=== PATIENT | male | born 1985 | race Caucasian/White ===

== ENCOUNTER → 2017-01-25 | Outpatient (REF) | payer OTHER ==
[2017-01-25 12:18] LABS: ANION GAP 18 MEQ/L (8-16); BLOOD UREA NITROGEN 12 MG/DL (7-18); CALCIUM LEVEL 9.5 MG/DL (8.5-10.1); CARBON DIOXIDE LEVEL 23 MEQ/L (21-32); CHLORIDE LEVEL 91 MEQ/L (98-107); CREATININE FOR GFR 0.86 MG/DL (0.70-1.30); GLOMERULAR FILTRATION RATE > 60.0 (>60); GLUCOSE, FASTING 361 MG/DL (70-105); SODIUM LEVEL 132 MEQ/L (136-145)
[2017-01-25 12:21] LABS: POTASSIUM SERUM 5.2 MEQ/L (3.5-5.1)
== END ==
LOC: M SFHCCLAY 08:18
PROVIDERS: ATTEND Family Medicine
DX: E11.9 Type 2 diabetes mellitus without complications (principal)

== ENCOUNTER → 2018-10-24 | Outpatient (REF) | payer OTHER, SELFPAY ==
[2018-10-24 12:59] LABS: BLOOD UREA NITROGEN 11 MG/DL (7-18); CALCIUM LEVEL 8.8 MG/DL (8.5-10.1); CARBON DIOXIDE LEVEL 33 MEQ/L (21-32); CHLORIDE LEVEL 94 MEQ/L (98-107); CREATININE FOR GFR 0.72 MG/DL (0.70-1.30); GLOMERULAR FILTRATION RATE > 60.0 (>60); GLUCOSE, FASTING 203 MG/DL (70-100); POTASSIUM SERUM 4.8 MEQ/L (3.5-5.1); SODIUM LEVEL 134 MEQ/L (136-145)
[2018-10-24 13:45] LABS: HEMOGLOBIN A1c 12.1 %
== END ==
LOC: M SFHCCLAY 09:49
PROVIDERS: ATTEND Family Medicine
DX: E11.9 Type 2 diabetes mellitus without complications (principal)

== ENCOUNTER → 2019-04-24 | Outpatient (REF) | payer OTHER, SELFPAY ==
[2019-04-25 12:07] LABS: BLOOD UREA NITROGEN 13 MG/DL (7-18); CALCIUM LEVEL 9.8 MG/DL (8.5-10.1); CARBON DIOXIDE LEVEL 27 MEQ/L (21-32); CHLORIDE LEVEL 100 MEQ/L (98-107); CREATININE FOR GFR 1.05 MG/DL (0.70-1.30); GLOMERULAR FILTRATION RATE > 60.0 (>60); GLUCOSE, FASTING 173 MG/DL (70-100); POTASSIUM SERUM 4.6 MEQ/L (3.5-5.1); SODIUM LEVEL 136 MEQ/L (136-145)
[2019-04-25 14:30] LABS: HEMOGLOBIN A1c 10.3 %
== END ==
LOC: M SFHCCLAY 15:50
PROVIDERS: ATTEND Family Medicine
DX: E11.9 Type 2 diabetes mellitus without complications (principal)

== ENCOUNTER → 2019-10-16 | Outpatient (REF) | payer OTHER ==
[2019-10-17 12:30] LABS: BLOOD UREA NITROGEN 9 MG/DL (7-18); CALCIUM LEVEL 8.8 MG/DL (8.5-10.1); CARBON DIOXIDE LEVEL 30 MEQ/L (21-32); CHLORIDE LEVEL 96 MEQ/L (98-107); CREATININE FOR GFR 0.72 MG/DL (0.70-1.30); GLOMERULAR FILTRATION RATE > 60.0 (>60); GLUCOSE, FASTING 210 MG/DL (70-100); POTASSIUM SERUM 4.5 MEQ/L (3.5-5.1); SODIUM LEVEL 132 MEQ/L (136-145)
[2019-10-17 12:43] LABS: HEMOGLOBIN A1c 12.2 %
== END ==
LOC: M SFHCCLAY 15:44
PROVIDERS: ATTEND Family Medicine
DX: E11.9 Type 2 diabetes mellitus without complications (principal)

== ENCOUNTER 2020-07-28 13:15 | Inpatient (IN) | payer SELFPAY ==
[~2020-07-28] VITALS: Ht 170.2 cm; Wt 72.0 kg
[2020-07-28] MEDS ORDERED: DEXTROSE 50% 50 ML SYRINGE IV PRN (15:45)
[2020-07-28] MEDS ORDERED: MOM 30ML SUSPENSION UDC PO PRN (15:45)
[2020-07-28] MEDS ORDERED: GLUCOSE 4GM CHEW TABLET PO PRN (15:45)
[2020-07-28] MEDS ORDERED: GLUCAGON INJ 1MG VIAL SC PRN (15:45)
[2020-07-28] MEDS ORDERED: MORPHINE 2 MG/ML 1ML VIAL (J2270) IV PRN (15:45)
[2020-07-28 15:47] VITALS: BP 138/82
[2020-07-28 16:18] LABS: BASO # 0.1 10^3/uL (0.0-0.2); BASO % 0.5 % (0.0-1.0); EOS % 0.1 % (0.0-3.0); HEMATOCRIT 39.5 % (42.0-52.0); HEMOGLOBIN 13.8 g/dl (13.5-17.5); LYMPH # 1.3 10^3/uL (1.5-5.0); LYMPH % 12.5 % (24.0-44.0); MEAN CORPUSCULAR HEMOGLOBIN 31.9 pg (27.0-33.0); MEAN CORPUSCULAR HGB CONC 34.9 g/dl (32.0-36.5); MEAN CORPUSCULAR VOLUME 91.4 fl (80.0-96.0); MONO # 1.1 10^3/uL (0.0-0.8); MONO % 10.8 % (0.0-5.0); NEUTROPHILS # 7.6 10^3/uL (1.5-8.5); NEUTROPHILS % 75.8 % (36.0-66.0); PLATELET COUNT, AUTOMATED 195 10^3/uL (150-450); RED BLOOD COUNT 4.32 10^6/uL (4.30-6.10); WHITE BLOOD COUNT 10.1 10^3/uL (4.0-10.0)
[2020-07-28] MEDS ORDERED: LANTINJ4 SC ×2 (16:23→16:28)
[2020-07-28] MEDS ORDERED: AMLO1TAB25 PO (16:23)
[2020-07-28 16:45] LABS: ALBUMIN 2.8 GM/DL (3.2-5.2); ALT/SGPT 11 U/L (12-78); BILIRUBIN,TOTAL 0.6 MG/DL (0.2-1.0); BLOOD UREA NITROGEN 11 MG/DL (7-18); CALCIUM LEVEL 8.8 MG/DL (8.5-10.1); CARBON DIOXIDE LEVEL 29 MEQ/L (21-32); CHLORIDE LEVEL 97 MEQ/L (98-107); CREATININE FOR GFR 0.84 MG/DL (0.70-1.30); GLOMERULAR FILTRATION RATE > 60.0 (>60); GLUCOSE, FASTING 224 MG/DL (70-100); POTASSIUM SERUM 4.9 MEQ/L (3.5-5.1); SODIUM LEVEL 130 MEQ/L (136-145); TOTAL PROTEIN 7.5 GM/DL (6.4-8.2)
[2020-07-28] MEDS ORDERED: **hydrALAZINE HCL** 25 MG TAB PO SCH (18:00)
[2020-07-28] MEDS: HumaLOG INSULIN (NovoLOG) PER UNIT SC SCH ×2 (18:21→20:29)
[2020-07-28] MEDS ORDERED: IBUPROFEN 800 MG TAB PO ONE (18:30)
[2020-07-28] MEDS ORDERED: NICOTINE 21MG/24HR 1 EA TRANSDERMAL TD PRN (18:30)
[2020-07-28] MEDS ORDERED: IBUPROFEN 600MG TAB PO PRN (18:30)
--- NOTE | 2020-07-28 18:33 | HPEPDOC ---
General Date of Admission Jul 28, 2020 at 15:30 Date of Service: Jul 28, 2020 Chief Complaint The patient is a 35-year-old male admitted with a reason for visit of Necrotic Right Great Toe. 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 Patient complains of dull throbbing pain in the toe about 4/10 in intensity radiating up to the dorrsum of the foot. He does have neuropathy in his feet. Home Medications Scheduled Amlodipine Besylate (Amlodipine Besylate) 10 Mg Tablet, 10 MG PO DAILY, (Repor rosalino) Insulin Glargine,Hum.rec.anlog (Lantus Solostar) 100 Unit/1 Ml Insuln.pen, 30 UNITS SC DAILY, (Reported) Scheduled PRN Insulin Glargine,Hum.rec.anlog (Lantus Solostar) 100 Unit/1 Ml Insuln.pen, 18 UNITS SC QPM PRN for HIGH BLOOD SUGAR, (Reported) Allergies Coded Allergies: No Known Drug Allergies (Verified Allergy, Unknown, 07/28/20) Past Medical History Medical History Diabetes with neuropathy and nephropathy Hypertension. ED Surgical History RIGHT FOOT TENDON REPAIR WISDOM TEETH EXTRACTION Family History Significant Family History: Cancer (maternal great aunt), Diabetes (sister), Heart disease (maternal grandfather) Social History * Smoker: current smoker Alcohol: heavy (4 beers a day) Drugs: denies A-FIB/CHADSVASC A-FIB History Current/History of A-Fib/PAF?: No Review of Systems Constitutional: Denies: Chills, Fever, Night Sweats Eyes: Denies: Pain, Vision change ENT: Denies: Head Aches, Ear Pain, Dysphagia Skin: Reports: Lesions, Other (calluses) Pulmonary: Denies: Dyspnea, Cough Cardiovascular: Denies: Chest Pain, Palpitations, Orthopnea, Paroxysmal Noc. Dyspnea, Lt Headedness Gastrointestinal: Denies: Nausea, Vomiting, Abdominal Pain, Diarrhea Genitourinary: Denies: Dysuria, Frequency, Incontinence, Retention Hematologic: Denies: Bruising, Bleeding Excessively Musculoskeletal: Denies: Neck Pain, Back Pain, Joint Pain, Muscle Pain, Spasms Neurological: Reports: Numbness Physical Examination General Exam: Positive: Alert, Cooperative, No Acute Distress Eye Exam: Positive: PERRLA, Conjunctiva & lids normal, EOMI; Negative: Sclera icteric ENT Exam: Positive: Atraumatic, Mucous membr. moist/pink, Pharynx Normal Neck Exam: Positive: Supple; Negative: JVD, thyromegaly Chest Exam: Positive: Clear to auscultation, Normal air movement Heart Exam: Positive: Rate Normal, Regular Rhythm, Normal S1, Normal S2; Negative: Murmurs, Rubs Abdomen Exam: Positive: Normal bowel sounds, Soft; Negative: Tenderness, Hepatospenomegaly Extremity Exam: Positive: Normal pulses, Swelling (right great toe and dorsum of right foot. ), Other (wet gangrene of right great toe with clear line of demarcation); Negative: Clubbing, Cyanosis, Edema Neuro Exam: Positive: Normal Speech, Strength at 5/5 X4 ext, Normal Tone Vital Signs Vital Signs Date Time Temp Pulse Resp B/P (MAP) Pulse Ox O2 Delivery O2 Flow Rate FiO2 07/28/20 15:47 96.8 74 18 138/82 (100) 98 Room Air Laboratory Data Labs 24H Laboratory Tests 2 07/28/20 16:07: Immature Granulocyte % (Auto) 0.3, Neutrophils (%) (Auto) 75.8H, Lymphocytes (%) (Auto) 12.5L, Monocytes (%) (Auto) 10.8H, Eosinophils (%) (Auto) 0.1, Basophils (%) (Auto) 0.5, Neutrophils # (Auto) 7.6, Lymphocytes # (Auto) 1.3L, Monocytes # (Auto) 1.1H, Eosinophils # (Auto) 0.0, Basophils # (Auto) 0.1, Nucleated Red Blood Cells % (auto) 0.0, Anion Gap 4L, Glomerular Filtration Rate > 60.0, Calcium Level 8.8, Total Bilirubin 0.6, Aspartate Amino Transf (AST/SGOT) 10, Alanine Aminotransferase (ALT/SGPT) 11L, Alkaline Phosphatase 95, Total Protein 7.5, Albumin 2.8L, Albumin/Globulin Ratio 0.6 07/28/20 16:25: Bedside Glucose (Misc Panel) 201H CBC/BMP Laboratory Tests 07/28/20 16:07 Assessment/Plan 35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 Right toe diabetic wound with wet gangrene and osteomyelitis wesley reyez. blood cultures sent from [facility] Dr Cardenas consulted. Uncontrolled diabetes with neuropathy and nephropathy will control with levemir and lispro FS AC and HS Hypertension will continue amlodipine and start lisinopril at night. Tobacco use discussed about smoking cessation will make nicotine patch available. Plan / VTE VTE Prophylaxis Ordered?: Yes NANI SPICER MD Jul 28, 2020 18:33
[2020-07-28 20:00] VITALS: BP 140/90
[2020-07-28] MEDS: LEVEMIR (INSULIN DETEMIR) 1 UNITS/0.01ML SC SCH (20:29)
[2020-07-28] MEDS: PIPERACILLIN/TAZOBACTAM SOD 3.375 GM in D5W MINI-BAG PLUS 50 ML IV SCH (20:43)
[2020-07-28] MEDS: LISINOPRIL *2.5 MG* TAB PO SCH (20:44)
[2020-07-28] MEDS: DOCUSATE SODIUM 100 MG CAP PO SCH (20:51)
[2020-07-29] VITALS (8 sets, daily range): BP systolic 122–162; BP diastolic 77–98
[2020-07-29] MEDS: PIPERACILLIN/TAZOBACTAM SOD 3.375 GM in D5W MINI-BAG PLUS 50 ML IV SCH ×4 (01:12→21:34)
[2020-07-29] MEDS: VANCOMYCIN HCL 1,000 MG, VIAL MATE ADAPTER 1 EACH in D5W 250 ML IV SCH ×3 (02:36→18:25)
[2020-07-29 05:11] LABS: BASO # 0.1 10^3/uL (0.0-0.2); BASO % 0.7 % (0.0-1.0); EOS # 0.1 10^3/uL (0.0-0.5); EOS % 1.2 % (0.0-3.0); HEMATOCRIT 38.9 % (42.0-52.0); HEMOGLOBIN 13.2 g/dl (13.5-17.5); LYMPH # 1.5 10^3/uL (1.5-5.0); LYMPH % 19.6 % (24.0-44.0); MEAN CORPUSCULAR HEMOGLOBIN 31.3 pg (27.0-33.0); MEAN CORPUSCULAR HGB CONC 33.9 g/dl (32.0-36.5); MEAN CORPUSCULAR VOLUME 92.2 fl (80.0-96.0); MONO # 0.8 10^3/uL (0.0-0.8); MONO % 10.5 % (0.0-5.0); NEUTROPHILS # 5.1 10^3/uL (1.5-8.5); NEUTROPHILS % 67.7 % (36.0-66.0); PLATELET COUNT, AUTOMATED 188 10^3/uL (150-450); RED BLOOD COUNT 4.22 10^6/uL (4.30-6.10); WHITE BLOOD COUNT 7.5 10^3/uL (4.0-10.0)
[2020-07-29 05:31] LABS: BLOOD UREA NITROGEN 13 MG/DL (7-18); CARBON DIOXIDE LEVEL 28 MEQ/L (21-32); CHLORIDE LEVEL 98 MEQ/L (98-107); CREATININE FOR GFR 0.77 MG/DL (0.70-1.30); GLOMERULAR FILTRATION RATE > 60.0 (>60); GLUCOSE, FASTING 108 MG/DL (70-100); POTASSIUM SERUM 4.3 MEQ/L (3.5-5.1); SODIUM LEVEL 133 MEQ/L (136-145)
[2020-07-29] MEDS: HumaLOG INSULIN (NovoLOG) PER UNIT SC SCH ×4 (07:29→21:33)
[2020-07-29] MEDS: LEVEMIR (INSULIN DETEMIR) 1 UNITS/0.01ML SC SCH (07:34)
[2020-07-29] MEDS: DOCUSATE SODIUM 100 MG CAP PO SCH ×2 (07:48→21:00)
[2020-07-29] MEDS ORDERED: VANCOMYCIN HCL 1,000 MG, VIAL MATE ADAPTER 1 EACH in D5W 250 ML IV ONE ×2 (08:00→08:30)
[2020-07-29] MEDS: amLODIPine 10 MG TAB PO SCH (09:07)
--- NOTE | 2020-07-29 13:34 | IPNPDOC ---
Text Note Date of Service The patient was seen on 07/29/20. NOTE HPI: Mr. Cormier is a 35 yo M with poorly controlled diabetes that was sent from [facility] to [facility] due to wet gangrene of his R great toe. SUBJECTIVE: No acute events overnight. Pt was seen and examined at bedside. He was not complaining of pain this morning and says he's been getting acetaminophen for pain. He was offered morphine but opted for acetaminophen instead. Pt denies shortness of breath, nausea, vomiting, diarrhea, fever, or chills. He was NPO this morning as he is scheduled to go to the OR this afternoon per Dr. Cardenas for debridement of the R great toe. OBJECTIVE: VITAL SIGNS: please see below. GENERAL: Pt is a thin appearing male who was examined lying in bed in no acute distress. HEENT: NC, AT, PERRLA, no scleral icterus, no pharyngeal erythema. CV: RRR, no mumurs, rubs, or gallops. RESP: CTAB, no rales, rhonchi, or wheezes. ABDOMEN: soft, nontender, nondistended, bowel sounds present in all quadrants. EXTREMITIES: no swelling or edema, R great toe bandaged, no visible erythema outside of bandages, +2/4 pedal pulses bilaterally, no lesions on L foot. LABORATORY: please see below. MICROBIOLOGY: please see below. IMAGING: -XRay performed at [facility] showing osteomyelitis of R great toe and distal phalanx. ASSESSMENT/PLAN: Mr. Cormier is a 35 yo male with a PMHx of poorly controlled IDDM and HTN that presented after being transferred from [facility] with right great toe wet gangrene. # Wet gangrene and osteomyelitis R great toe likely 2/2 to poorly controlled DM - Pt is on vancomycin and zosyn. - Xrays from [facility] show extensive osteomyelitis of R great toe and distal phalanx - Dr. Cardenas consulted and to take pt to the OR this afternoon. - Will educate pt on the importance of glycemic control, diabetic foot care/exams, and diabetic eye exams. # Uncontrolled diabetes with neuropathy and nephropathy (?) - BUN 13, Fashion Patternmaker 0.77, Fasting BG 108 - Pt's sliding scale insulin and long acting insulin to be adjusted accordingly. - Ordered an A1c as the last one was 12.2 in 2019. # HTN -Continue amlodipine and lisinopril # Tobacco Use -Counseled about smoking cessation. -Made nicotine patch available. DVT Prophylaxis: Lovenox 40mg (held this AM d/t procedure this afternoon). GI Prophylaxis: not indicated. VS,Fishbone, I+O VS, Fishbone, I+O Laboratory Tests 07/28/20 16:07 07/29/20 04:58 Vital Signs Date Time Temp Pulse Resp B/P (MAP) Pulse Ox O2 Delivery O2 Flow Rate FiO2 07/29/20 12:00 96.8 72 18 147/83 (104) 100 Room Air I&O- Last 24 Hours up to 6 AM 07/29/20 05:59 Intake Total 600 ml Balance 600 ml GME ATTESTATION GME ATTESTATION My faculty preceptor for this patient encounter was physically present during the encounter and was fully available. All aspects of the patient interview, examination, medical decision making process, and medical care plan development were reviewed and approved by the faculty preceptor. The faculty preceptor is aware and concurs with the plan as stated in the body of this note and will attest to such by his/her cosignature. ATTENDING NOTE Patient was seen and examined by me personally with the residents and students. Agree with the above assessment and plan EUSEBIO ANDRE OMS-3 Jul 29, 2020 13:34 ESVIN BUI MD Aug 07, 2020 09:27
--- NOTE | 2020-07-29 14:45 | IPNPDOC ---
Subjective Date Seen The patient was seen on 07/29/20. Assessment /Plan Plan/VTE VTE Prophylaxis Ordered?: Yes VS, I&O, 24H, [facility] Vital Signs/I&O Vital Signs Date Time Temp Pulse Resp B/P (MAP) Pulse Ox O2 Delivery O2 Flow Rate FiO2 07/29/20 04:00 97.8 60 18 138/90 (106) 98 Room Air I&O- Last 24 Hours up to 6 AM 07/29/20 06:59 Intake Total 600 ml Balance 600 ml Laboratory Data 24H LABS Laboratory Tests 2 07/28/20 16:07: Immature Granulocyte % (Auto) 0.3, Neutrophils (%) (Auto) 75.8H, Lymphocytes (%) (Auto) 12.5L, Monocytes (%) (Auto) 10.8H, Eosinophils (%) (Auto) 0.1, Basophils (%) (Auto) 0.5, Neutrophils # (Auto) 7.6, Lymphocytes # (Auto) 1.3L, Monocytes # (Auto) 1.1H, Eosinophils # (Auto) 0.0, Basophils # (Auto) 0.1, Nucleated Red Blood Cells % (auto) 0.0, Anion Gap 4L, Glomerular Filtration Rate > 60.0, Calcium Level 8.8, Total Bilirubin 0.6, Aspartate Amino Transf (AST/SGOT) 10, Alanine Aminotransferase (ALT/SGPT) 11L, Alkaline Phosphatase 95, Total Protein 7.5, Albumin 2.8L, Albumin/Globulin Ratio 0.6 07/28/20 16:25: Bedside Glucose (Misc Panel) 201H 07/28/20 20:23: Bedside Glucose (Misc Panel) 74 07/29/20 04:58: Immature Granulocyte % (Auto) 0.3, Neutrophils (%) (Auto) 67.7H, Lymphocytes (%) (Auto) 19.6L, Monocytes (%) (Auto) 10.5H, Eosinophils (%) (Auto) 1.2, Basophils (%) (Auto) 0.7, Neutrophils # (Auto) 5.1, Lymphocytes # (Auto) 1.5, Monocytes # (Auto) 0.8, Eosinophils # (Auto) 0.1, Basophils # (Auto) 0.1, Nucleated Red Blood Cells % (auto) 0.0, Anion Gap 7L, Glomerular Filtration Rate > 60.0, Calcium Level 8.0L, C-Reactive Protein, Quantitative 6.30H CBC/BMP Laboratory Tests 07/28/20 16:07 07/29/20 04:58 NANI SPICER MD Jul 29, 2020 07:58
[2020-07-29] MEDS ORDERED: BUPIVACAINE HCL 0.5% 10ML VIAL As Ordered ONE (15:59)
[2020-07-29] MEDS ORDERED: LIDOCAINE 1% MDV 20ML VIAL As Ordered ONE (15:59)
[2020-07-29] MEDS ORDERED: MIDAZOLAM INJ 2MG/2ML VIAL (J2250 PER 1MG) As Ordered ONE (16:24)
[2020-07-29] MEDS ORDERED: propofoL 200 MG/20 ML VIAL As Ordered ONE ×2 (16:24→17:06)
[2020-07-29] MEDS ORDERED: fentaNYL 100 MCG/2 ML INJECTION (J3010) As Ordered ONE (16:24)
[2020-07-29] MEDS ORDERED: LIDOCAINE 2% 100MG/5ML SDV (FOR ANES.) As Ordered ONE (16:24)
[2020-07-29] MEDS ORDERED: ONDANSETRON 4MG/2ML VIAL As Ordered ONE (16:25)
[2020-07-29] MEDS ORDERED: dexameTHASONE 4 MG/ML 1ML VIAL (J1100 PER 1MG) As Ordered ONE (16:25)
[2020-07-29] MEDS ORDERED: SLF 3 ML SYR IV PRN (16:30)
[2020-07-29] MEDS ORDERED: oxyCODONE 5MG TAB PO PRN (18:15)
[2020-07-29] MEDS ORDERED: NORCO, ANEXSIA 5/325MG TABLET (HYDROcodone/ACETAMINOPHEN) PO PRN (18:15)
[2020-07-29] MEDS ORDERED: ONDANSETRON 4MG/2ML VIAL IV PRN (18:15)
[2020-07-29] MEDS ORDERED: LOPERAMIDE 2 MG CAPLET PO ONE (21:30)
[2020-07-29] MEDS: LISINOPRIL *2.5 MG* TAB PO SCH (21:32)
[2020-07-29] MEDS: SLF 3 ML SYR IV SCH (21:33)
[2020-07-30] VITALS: BP 124/74
[2020-07-30] MEDS: PIPERACILLIN/TAZOBACTAM SOD 3.375 GM in D5W MINI-BAG PLUS 50 ML IV SCH ×4 (01:57→18:31)
[2020-07-30] MEDS: VANCOMYCIN HCL 1,000 MG, VIAL MATE ADAPTER 1 EACH in D5W 250 ML IV SCH ×3 (02:53→22:01)
[2020-07-30] MEDS: SLF 3 ML SYR IV SCH ×3 (03:58→22:02)
[2020-07-30 04:00] VITALS: BP 159/86
[2020-07-30 05:25] LABS: BASO % 0.4 % (0.0-1.0); EOS % 0.1 % (0.0-3.0); HEMATOCRIT 36.4 % (42.0-52.0); HEMOGLOBIN 12.5 g/dl (13.5-17.5); LYMPH % 10.8 % (24.0-44.0); MEAN CORPUSCULAR HGB CONC 34.3 g/dl (32.0-36.5); MEAN CORPUSCULAR VOLUME 93.1 fl (80.0-96.0); MONO # 0.9 10^3/uL (0.0-0.8); MONO % 9.2 % (0.0-5.0); NEUTROPHILS # 7.6 10^3/uL (1.5-8.5); NEUTROPHILS % 78.8 % (36.0-66.0); PLATELET COUNT, AUTOMATED 203 10^3/uL (150-450); RED BLOOD COUNT 3.91 10^6/uL (4.30-6.10); WHITE BLOOD COUNT 9.7 10^3/uL (4.0-10.0)
[2020-07-30 05:51] LABS: BLOOD UREA NITROGEN 12 MG/DL (7-18); CALCIUM LEVEL 8.2 MG/DL (8.5-10.1); CARBON DIOXIDE LEVEL 27 MEQ/L (21-32); CHLORIDE LEVEL 98 MEQ/L (98-107); CREATININE FOR GFR 0.88 MG/DL (0.70-1.30); GLOMERULAR FILTRATION RATE > 60.0 (>60); GLUCOSE, FASTING 340 MG/DL (70-100); POTASSIUM SERUM 5.1 MEQ/L (3.5-5.1); SODIUM LEVEL 131 MEQ/L (136-145)
[2020-07-30] MEDS: DOCUSATE SODIUM 100 MG CAP PO SCH ×2 (07:55→21:00)
[2020-07-30 08:00] VITALS: BP 166/92
[2020-07-30] MEDS: MUPIROCIN 2% OINT 22 GM TUBE TOP SCH (08:05)
[2020-07-30] MEDS: HumaLOG INSULIN (NovoLOG) PER UNIT SC SCH ×5 (08:05→21:00)
[2020-07-30] MEDS: ENOXAPARIN 40MG/0.4ML SYRINGE (J1650 PER 10MG) SC SCH (08:06)
[2020-07-30] MEDS: amLODIPine 10 MG TAB PO SCH (08:07)
--- NOTE | 2020-07-30 08:50 | IPNPDOC ---
Text Note Date of Service The patient was seen on 07/30/20. NOTE HPI: Mr. Cormier is a 35 yo M with poorly controlled diabetes that was sent from [facility] to [facility] due to wet gangrene of his R great toe. SUBJECTIVE: Yesterday the pt had a R hallux amputation. Overnight he had 3-4 episodes of nonbloody diarrhea that resolved with administration of Loperamide. This morning he complains of pain in the R foot but was due to receive another dose of pain medication which he says has been managing the pain appropriately. He denies fever, chills, nausea, vomiting, or further episodes of diarrhea. Dr. Cardenas was in to talk to the pt this morning and the pt reported that he was counseled on better diabetes management. I also spoke with the pt about his understanding of how his foot got to this point, his understanding of his diabe nancy, and his tobacco use. The patient does not show any willingness to cut down or quit smoking at this time. OBJECTIVE: VITAL SIGNS: please see below. GENERAL: Pt is a thin appearing male that appears older than stated age, lying comfortably in bed, makes minimal eye contact, in NAD. HEENT: NC, AT, no scleral icterus, no pharyngeal erythema. CV: RRR, no murmurs, rubs, or gallops. RESP: CTAB, no rales, rhonchi, or wheezes. ABDOMEN: soft, nontender, nondistended, bowel sounds present in all quadrants. EXTREMITIES: Right foot bandaged, bandage is clean and dry, Left forefoot is wrapped, wrapping is clean and dry. No swelling or edema, +2/4 pedal pulses BL. LABORATORY: please see below. MICROBIOLOGY: -Cultures of amputated R hallux sent yesterday and are pending. IMAGING: -XRay performed at [facility] showing osteomyelitis of R great toe and entire distal phalanx. ASSESSMENT/PLAN: Mr. Cormier is a 35 yo M with a PMHx of poorly controlled IDDM and HTN that presented after being transferred from [facility] with R great toe wet gangrene and osteomyelitis. # Wet gangrene and osteomyelitis of R hallux and distal phalanx s/p R hallux amputation -Pt under the care of Dr. Cardenas, appreciate his recommendations. -Pt continuing to receive vancomycin and zosyn. Will be able to target antibiotics once cultures return and if the entire osteomyelitis was removed. -Educated pt on the importance of glycemic control, diabetic foot care/exams, and smoking cessation. -Pain control and post op care as per Dr. Cardenas. # Uncontrolled diabetes with neuropathy and nephropathy (?) -BUN 12, Toppiece Cutter 0.88, Fasting BG 340. -Pt's sliding scale insulin and long acting insulin to be adjusted accordingly. -Pt did not receive his usual dose of insulin yesterday as he was NPO. -A1c 11 # HTN -Continue amlodipine and lisinopril. # Tobacco use -Counseled about smoking cessation. Pt unreceptive to cessation plans. -Made nicotine patch available. DVT Prophylaxis: Lovenox 40mg GI Prophylaxis: not indicated. VS,Fishbone, I+O VS, Fishbone, I+O Laboratory Tests 07/30/20 05:00 Vital Signs Date Time Temp Pulse Resp B/P (MAP) Pulse Ox O2 Delivery O2 Flow Rate FiO2 07/30/20 08:07 82 166/96 07/30/20 08:00 96.3 18 100 Room Air I&O- Last 24 Hours up to 6 AM 07/30/20 06:00 Intake Total 4910 ml Output Total 0 ml Balance 4910 ml GME ATTESTATION GME ATTESTATION My faculty preceptor for this patient encounter was physically present during the encounter and was fully available. All aspects of the patient interview, examination, medical decision making process, and medical care plan development were reviewed and approved by the faculty preceptor. The faculty preceptor is aware and concurs with the plan as stated in the body of this note and will attest to such by his/her cosignature. ATTENDING NOTE Patient was seen and examined by me personally with the residents and students. Agree with the above assessment and plan EUSEBIO ANDRE OMS-3 Jul 30, 2020 08:50 ESVIN BUI MD Aug 07, 2020 09:29
[2020-07-30 12:00] VITALS: BP 159/93
[2020-07-30] MEDS: LEVEMIR (INSULIN DETEMIR) 1 UNITS/0.01ML SC SCH ×2 (13:36→21:00)
--- NOTE | 2020-07-30 15:38 | CR ---
DATE OF CONSULTATION: 07/28/2020 REASON FOR CONSULTATION: Right hallux gangrene. HISTORY OF PRESENT ILLNESS: The patient is a 35-year-old male who was admitted to the hospital as transfer from [facility] Emergency Department due to necrotic right big toe. He states he noticed a wound starting just less than a week ago after a callus fell off of his big toe. Over the next few days the toe became red and then became black and he had increasing pain. He went to the ER at [facility] and then sent to [facility] for admission. PAST MEDICAL HISTORY: Significant for diabetes with neuropathy and nephropathy, hypertension, ED. SURGICAL HISTORY: Includes right foot tendon repair and wisdom teeth extraction. FAMILY HISTORY: Includes cancer, diabetes and heart disease. SOCIAL HISTORY: Positive for alcohol and tobacco use. ALLERGIES: NO KNOWN DRUG ALLERGIES. REVIEW OF SYSTEMS: He denies nausea, vomiting, fever, chills. Vitals are reviewed. He has been afebrile since admission. LABORATORY DATA: Reviewed. White blood cell count 10.1, hemoglobin 13.8. PHYSICAL EXAMINATION: Lower extremity examination: Pedal pulses are palpable bilaterally. There is callus with some dry blood under the left hallux. The right hallux the toe has eschar extending to just proximal to the interphalangeal joint and there is edema and erythema to the right foot. There is no capillary refill to the distal toe with positive malodor. ASSESSMENT: 35-year-old diabetic male with right hallux gangrene and left hallux wound. PLAN: * The patient is to be brought to the operating room tomorrow for hallux amputation as well as left hallux wound debridement. * He is to be NPO after early breakfast. * Presently he is on Vancomycin and Zosyn. Will take operative wound cultures. YANET
[2020-07-30 16:00] VITALS: BP 142/82
[2020-07-30 20:00] VITALS: BP 141/88
[2020-07-30] MEDS: LISINOPRIL *2.5 MG* TAB PO SCH (22:01)
[2020-07-31] VITALS: BP 152/92
[2020-07-31] MEDS: PIPERACILLIN/TAZOBACTAM SOD 3.375 GM in D5W MINI-BAG PLUS 50 ML IV SCH ×3 (00:44→12:23)
[2020-07-31 04:00] VITALS: BP 135/88
[2020-07-31] MEDS: VANCOMYCIN HCL 1,000 MG, VIAL MATE ADAPTER 1 EACH in D5W 250 ML IV SCH ×2 (05:13→12:16)
[2020-07-31] MEDS: SLF 3 ML SYR IV SCH ×2 (05:13→13:13)
[2020-07-31 05:25] LABS: BASO # 0.1 10^3/uL (0.0-0.2); BASO % 0.6 % (0.0-1.0); EOS # 0.1 10^3/uL (0.0-0.5); EOS % 0.6 % (0.0-3.0); HEMOGLOBIN 12.1 g/dl (13.5-17.5); LYMPH # 1.4 10^3/uL (1.5-5.0); LYMPH % 13.6 % (24.0-44.0); MEAN CORPUSCULAR HEMOGLOBIN 32.1 pg (27.0-33.0); MEAN CORPUSCULAR HGB CONC 34.6 g/dl (32.0-36.5); MEAN CORPUSCULAR VOLUME 92.8 fl (80.0-96.0); MONO % 10.1 % (0.0-5.0); NEUTROPHILS # 7.6 10^3/uL (1.5-8.5); NEUTROPHILS % 74.6 % (36.0-66.0); PLATELET COUNT, AUTOMATED 216 10^3/uL (150-450); RED BLOOD COUNT 3.77 10^6/uL (4.30-6.10); WHITE BLOOD COUNT 10.2 10^3/uL (4.0-10.0)
[2020-07-31 05:42] LABS: BLOOD UREA NITROGEN 6 MG/DL (7-18); CALCIUM LEVEL 8.1 MG/DL (8.5-10.1); CARBON DIOXIDE LEVEL 30 MEQ/L (21-32); CHLORIDE LEVEL 100 MEQ/L (98-107); CREATININE FOR GFR 0.74 MG/DL (0.70-1.30); GLOMERULAR FILTRATION RATE > 60.0 (>60); GLUCOSE, FASTING 169 MG/DL (70-100); POTASSIUM SERUM 4.7 MEQ/L (3.5-5.1); SODIUM LEVEL 134 MEQ/L (136-145)
[2020-07-31] MEDS: HumaLOG INSULIN (NovoLOG) PER UNIT SC SCH ×4 (07:35→12:16)
[2020-07-31 08:00] VITALS: BP 138/82
[2020-07-31] MEDS: DOCUSATE SODIUM 100 MG CAP PO SCH (08:10)
[2020-07-31 09:07] VITALS: BP 140/82
[2020-07-31] MEDS: amLODIPine 10 MG TAB PO SCH (09:07)
[2020-07-31] MEDS: LEVEMIR (INSULIN DETEMIR) 1 UNITS/0.01ML SC SCH (09:07)
[2020-07-31] MEDS: ENOXAPARIN 40MG/0.4ML SYRINGE (J1650 PER 10MG) SC SCH (09:07)
[2020-07-31] MEDS: MUPIROCIN 2% OINT 22 GM TUBE TOP SCH (09:08)
[2020-07-31 12:00] VITALS: BP 113/70
[2020-07-31] MEDS ORDERED: MUPI2OI TOP (13:01)
[2020-07-31] MEDS ORDERED: PROBCAP14 PO (13:01)
[2020-07-31] MEDS ORDERED: LEVO750T13 PO (13:01)
--- NOTE | 2020-07-31 13:33 | DS.PDOC ---
Discharge Summary General Date of Admission Jul 28, 2020 at 15:30 Date of Discharge Jul 31, 2020 Primary Care Physician: Robby Marcelo Attending Physician: ESVIN BUI MD Specialist/Consultants Involve: LUAN DENNIS DPM Discharge Summary PROCEDURES PERFORMED DURING STAY: R hallux amputation and L hallux debridement. ADMITTING DIAGNOSES/DISCHARGE DIAGNOSES: 1. IDDM 2. HTN 3. Wet gangrene and osteomyelitis of R hallux 4. ED COMPLICATIONS/CHIEF COMPLAINT: Necrotic Right Great Toe. HISTORY OF PRESENT ILLNESS: Mr. Cormier is a 35 yo male with a PMHx of poorly controlled IDDM and HTN that presented to [place] ED on 07/28/2020 complaining of R great toe pain that had progressed to the toe turning black and having a foul odor. He states that it started as a callus that fell of 9 days prior, started to get red and swollen, and then became black which prompted him to visit [place] ED. Imaging obtained at [place] ED showed osteomyelitis of the R hallux and distal phalanx. He was sent to [facility] ED for a higher level of care. HOSPITAL COURSE/DISCHARGE PLAN: Upon admission on 07/28/2020 the pt was started on IV zosyn and vancomycin to cover osteomyelitis and gangrene. On 07/29/2020 the pt was seen and evaluated by Dr. Dennis and was taken to the OR later that day for R toe debridement. The procedure ended up being a R hallux amputation and a L hallux debridement. He had a callus on his L hallux that was debrided at the time of R hallux amputation. He has had diarrhea since the evening of 07/29 until the morning of 07/31 likely due to the strong IV antibiotics that he was on. The pt was educated several times by the hospitalist team, Dr. Dennis, and nursing about the importance of blood glucose control, diabetic foot care, diabetic eye exams, alcohol consumption, and smoking cessation. The pt was not agreeable to a ny sort of smoking cessation or alcohol abstinence at this time. PT worked with the pt and cleared him for discharge. Pathology says that the toe was removed with clean margins so the pt is being discharged today (07/31/2020) on oral levaquin. He is instructed to follow up with his PCP as well as Dr. Dennis within 7 days of discharge and to return to the hospital if symptoms return. DISCHARGE MEDICATIONS: Please see below. ALLERGIES: Please see below. PHYSICAL EXAMINATION ON DISCHARGE: VITAL SIGNS: Please see below. GENERAL: Pt is a thin appearing male, seen lying comfortably in bed in no acute distress. HEENT: NC, AT, no scleral icterus, no pharyngeal erythema. NECK: no JVD or lymphadenopathy appreciated. CARDIOVASCULAR EXAMINATION: RRR, no murmurs, rubs, or gallops, normal S1 and S2. RESPIRATORY EXAMINATION: CTAB, no rales, rhonchi, or wheezes. ABDOMINAL EXAMINATION: soft, nontender, nondistended, bowel sounds present in all quadrants. EXTREMITIES: R foot bandage is clean and dry, no visible erythema on R foot, L forefoot bandage is clean and dry, no visible swelling or erythema, pedal pulses +2/4 BL. SKIN: No new rashes or lesions. NEUROLOGICAL EXAMINATION: CN II-XII grossly intact, EOMI, PERRLA. PSYCHIATRIC EXAMINATION: Normal mood and affect, poor eye contact. LABORATORY DATA: Please see below. IMAGING: -R foot Xray from [facility] on 07/28/2020: Wet gangrene and osteomyelitis of R great toe involving the entire distal phalanx. PROGNOSIS: Fair. ACTIVITY: NWB R LE with surgical shoe. Weight bearing as tolerated L LE with crutches. DIET: Diabetic diet. DISPOSITION: Discharge home. DISCHARGE INSTRUCTIONS/ITEMS TO FOLLOWUP ON OUTPATIENT: 1. Follow up with PCP within 7 days. Followup on pending anaerobic cultures from the amputated toe. 2. Follow up with Dr. Dennis in 7 days. Out of work indefinitely until podiatry follow up and clearance. 3. Take Levaquin for 7 days as prescribed. 4. Follow wound care instructions: Left big toe- antibiotic ointment and ban daid, change daily. Right amputation site- tends, 4x4 gauze, cling, DENISA wrap, change every other day. 5. Take lactobacillus probiotic as prescribed. DISCHARGE CONDITION: Stable. TIME SPENT ON DISCHARGE: Greater than 35 minutes. Vital Signs/I&Os Vital Signs Date Time Temp Pulse Resp B/P (MAP) Pulse Ox O2 Delivery O2 Flow Rate FiO2 07/31/20 09:07 74 140/82 07/31/20 08:00 97.3 17 100 Room Air I&O- Last 24 Hours up to 6 AM 07/31/20 06:00 Intake Total 2170 ml Output Total 1025 ml Balance 1145 ml Laboratory Data Labs 24H Laboratory Tests 2 07/30/20 11:33: Bedside Glucose (Misc Panel) 275H 07/30/20 13:32: Bedside Glucose (Misc Panel) 255H 07/30/20 16:20: Bedside Glucose (Misc Panel) 216H 07/30/20 21:32: Bedside Glucose (Misc Panel) 67L 07/31/20 05:08: Immature Granulocyte % (Auto) 0.5, Neutrophils (%) (Auto) 74.6H, Lymphocytes (%) (Auto) 13.6L, Monocytes (%) (Auto) 10.1H, Eosinophils (%) (Auto) 0.6, Basophils (%) (Auto) 0.6, Neutrophils # (Auto) 7.6, Lymphocytes # (Auto) 1.4L, Monocytes # (Auto) 1.0H, Eosinophils # (Auto) 0.1, Basophils # (Auto) 0.1, Nucleated Red Blood Cells % (auto) 0.0, Anion Gap 4L, Glomerular Filtration Rate > 60.0, Calcium Level 8.1L CBC/BMP Laboratory Tests 07/31/20 05:08 FSBS Laboratory Tests Test 07/30/20 11:33 07/30/20 13:32 07/30/20 16:20 07/30/20 21:32 Range/Units Bedside Glucose (Misc Panel) 275 255 216 67 70-105 MG/DL Microbiology Microbiology 07/29/20 Gram Stain - Final, Resulted 07/29/20 Wound Culture - Preliminary, Resulted Morganella Morganii Sp Sibonii 07/29/20 Anaerobic Culture, Resulted Pending Discharge Medications Scheduled Amlodipine Besylate (Amlodipine Besylate) 10 Mg Tablet, 10 MG PO DAILY, (Reported) Insulin Glargine,Hum.rec.anlog (Lantus Solostar) 100 Unit/1 Ml Insuln.pen, 30 UNITS SC DAILY, (Reported) Lactobacillus Acidophilus (Probiotic) 1 Each Capsule, 1 CAP PO TID Levofloxacin (Levofloxacin) 750 Mg Tablet, 750 MG PO DAILY Mupirocin (Mupirocin) 2 % Oint...g., 0 DOSE TOP DAILY Scheduled PRN Insulin Glargine,Hum.rec.anlog (Lantus Solostar) 100 Unit/1 Ml Insuln.pen, 18 UNITS SC QPM PRN for HIGH BLOOD SUGAR, (Reported) Allergies Coded Allergies: No Known Drug Allergies (Verified Allergy, Unknown, 07/28/20) GME ATTESTATION GME ATTESTATION My faculty preceptor for this patient encounter was physically present during the encounter and was fully available. All aspects of the patient interview, examination, medical decision making process, and medical care plan development were reviewed and approved by the faculty preceptor. The faculty preceptor is aware and concurs with the plan as stated in the body of this note and will attest to such by his/her cosignature. ATTENDING NOTE Patient was seen and examined by me personally with the residents and students. Agree with the above assessment and plan EUSEBIO ANDRE OMS-3 Jul 31, 2020 11:42 ESVIN BUI MD Aug 07, 2020 09:32
--- NOTE | 2020-08-01 07:01 | IPN ---
DATE: 07/30/2020 SUBJECTIVE: Patient seen and examined. There was some bleeding overnight. He states that nursing reapplied dressings and that bleeding eventually stopped. He has some pain in his foot. He has not taken a pain pill yet this morning. He denies other complaints. PHYSICAL EXAMINATION: Vitals are reviewed, he has remained afebrile. LOWER EXTREMITY EXAMINATION: There is some remaining erythema and edema to the right foot, some dried blood. No active bleeding is noted at the incision and the wound is still coapted without dehiscence. LABORATORY DATA: Labs are reviewed. White blood cell count 9.7, hemoglobin 12.5. ASSESSMENT: This 35-year-old male with diabetes; status post right hallux amputation. PLAN: Continue I.V. antibiotics. Await culture results. He is to be off his right foot. Therapy has been ordered. Wound care order is written. Once cultures are available, he can be discharged on oral antibiotics likely for two week duration. He should follow-up in my office next week. YANET
--- NOTE | 2020-08-01 07:05 | RO ---
DATE OF SURGERY: 07/29/2020 SURGEON: Kwabena Cardenas DPM DIE DESIGNER APPRENTICE: None. PREOPERATIVE DIAGNOSES: 1. Right hallux gangrene. 2. Left hallux ulcer. POSTOPERATIVE DIAGNOSIS: 1. Right hallux gangrene. 2. Left hallux ulcer. PROCEDURE: 1. Right hallux amputation. 2. Left hallux excisional wound debridement including subcutaneous tissue. ANESTHESIA: Monitored anesthesia care. PREOPERATIVE INJECTION: 20 cc of a one-to-one mixture of 1% lidocaine plain and 0.5% Marcaine plain. ESTIMATED BLOOD LOSS: Minimal. MATERIALS: 3-0 nylon. INJECTABLES: None. SPECIMENS: Right hallux, as well as right hallux aerobic and anaerobic cultures. COMPLICATIONS: None. CONDITION: Stable. INDICATIONS: Quincy Cormier is a 35-year-old male who is admitted to the hospital with right hallux gangrene. He was started on IV antibiotics with plan for amputation. The patient's side and site were identified and marked in the pre-operative holding area. Consent was reviewed and obtained. All risks, complications, and alternatives to the procedure were explained to the patient in detail and all questions were answered. DESCRIPTION OF PROCEDURE: The patient was brought to the operating room and placed on the operating room table in the supine position. Monitored anesthesia care was delivered by the anesthesia team. Preoperative injection of 20 mL of a one-to-one mixture of 1% lidocaine plain and 0.5% Marcaine plain were injected in the right foot and left hallux. A tourniquet was applied to the right ankle. Both feet were prepped and draped in normal sterile fashion. The tourniquet on the ankle was inflated to 250 mmHg. Attention was first paid to the left hallux. Using a #10-blade, the wound was debrided of nonviable tissue and callous in excisional fashion, including subcutaneous tissue. This wound was dressed with sterile gauze dressing. Attention was then paid to the right hallux. Significant gangrene was noted to the right hallux extending to the metatarsophalangeal joint. The toe was disarticulated at this joint. Aerobic and anaerobic cultures were taken. The toe was sent for pathology. The wound was debrided free until no further necrotic tissue or nonviable tissue was noted. The site was irrigated with normal saline and the wound was closed using 3-0 nylon. The tourniquet was deflated. Sterile dressings were applied. The patient was brought to the PACU with vital signs stable and neurovascular status intact. He will be readmitted to the floor. Continue antibiotics. Await culture results. We will follow. YANET
== END 2020-07-31 16:06 | disposition home or self-care (01) | DRG 314 ==
LOC: M PCU 15:30
PROVIDERS: ADMIT Internal Medicine; ATTEND Internal Medicine
PROC: 0JBR0ZZ Excision of Left Foot Subcutaneous Tissue and Fascia, Open Approach (ICD-10-PCS; principal; 2020-07-29 07:58)
PROC: 0Y6P0Z0 Detachment at Right 1st Toe, Complete, Open Approach (ICD-10-PCS; 2020-07-29 07:58)
DX: E11.52 Type 2 diabetes mellitus with diabetic peripheral angiopathy with gangrene (principal); M86.171 Other acute osteomyelitis, right ankle and foot; I96 Gangrene, not elsewhere classified; E11.21 Type 2 diabetes mellitus with diabetic nephropathy; E11.40 Type 2 diabetes mellitus with diabetic neuropathy, unspecified; E11.621 Type 2 diabetes mellitus with foot ulcer; L97.519 Non-pressure chronic ulcer of other part of right foot with unspecified severity; I10 Essential (primary) hypertension; F17.200 Nicotine dependence, unspecified, uncomplicated; Z79.899 Other long term (current) drug therapy; Z79.4 Long term (current) use of insulin

== ENCOUNTER → 2020-10-18 | Outpatient (REF) | payer MEDICAID, OTHER ==
[~2020-10-18] MED LIST: AMLO1TAB25 PO; LANTINJ4 SC; LEVO750T13 PO; MUPI2OI TOP; PROBCAP14 PO
[2020-10-18 16:26] LABS: BLOOD UREA NITROGEN 15 MG/DL (7-18); CALCIUM LEVEL 9.9 MG/DL (8.5-10.1); CARBON DIOXIDE LEVEL 32 MEQ/L (21-32); CHLORIDE LEVEL 96 MEQ/L (98-107); CREATININE FOR GFR 1.03 MG/DL (0.70-1.30); GLOMERULAR FILTRATION RATE > 60.0 (>60); GLUCOSE, FASTING 288 MG/DL (70-100); POTASSIUM SERUM 4.2 MEQ/L (3.5-5.1); SODIUM LEVEL 132 MEQ/L (136-145)
[2020-10-18 16:47] LABS: HEMOGLOBIN A1c 11.1 %
== END ==
LOC: M SFHCCLAY 10:18
PROVIDERS: ATTEND Family Medicine
DX: E11.9 Type 2 diabetes mellitus without complications (principal)

== ENCOUNTER → 2021-01-24 | Outpatient (REF) | payer MEDICAID, OTHER | LOC: M SFHCCLAY 11:14 | PROVIDERS: ATTEND Family Medicine | DX: R19.7 Diarrhea, unspecified (principal) ==

== ENCOUNTER → 2021-02-04 | Outpatient (REF) | payer OTHER ==
[2021-02-04 12:29] LABS: BASO # 0.1 10^3/uL (0.0-0.2); BASO % 1.4 % (0.0-1.0); EOS # 0.4 10^3/uL (0.0-0.5); EOS % 6.1 % (0.0-3.0); HEMATOCRIT 42.3 % (42.0-52.0); HEMOGLOBIN 14.7 g/dl (13.5-17.5); LYMPH # 1.5 10^3/uL (1.5-5.0); LYMPH % 23.1 % (24.0-44.0); MEAN CORPUSCULAR HEMOGLOBIN 32.3 pg (27.0-33.0); MEAN CORPUSCULAR HGB CONC 34.8 g/dl (32.0-36.5); MONO # 0.7 10^3/uL (0.0-0.8); NEUTROPHILS # 3.7 10^3/uL (1.5-8.5); NEUTROPHILS % 58.2 % (36.0-66.0); PLATELET COUNT, AUTOMATED 192 10^3/uL (150-450); RED BLOOD COUNT 4.55 10^6/uL (4.30-6.10); WHITE BLOOD COUNT 6.4 10^3/uL (4.0-10.0)
[2021-02-04 12:50] LABS: ALBUMIN 3.6 GM/DL (3.2-5.2); BILIRUBIN,DIRECT 0.2 MG/DL (0.0-0.2); BILIRUBIN,TOTAL 0.3 MG/DL (0.2-1.0); TOTAL PROTEIN 7.4 GM/DL (6.4-8.2)
[2021-02-04 12:57] LABS: FOLATE 7.3 NG/ML
[2021-02-06 07:10] LABS: IGASUB2 410.5 mg/dL (73.2-301.2); IGASUB3 >132.4 mg/dL (13.4-97.9); IgA SERUM (part of Subclasses) 530 mg/dL (90-386); TISSUE TRANSGLUTAMINASE IgA <2 U/mL (0-3)
== END ==
LOC: M LABDRAWC 11:00
PROVIDERS: ATTEND Internal Medicine Gastroenterology
DX: R19.7 Diarrhea, unspecified (principal); R10.32 Left lower quadrant pain

== ENCOUNTER → 2021-04-10 | Outpatient (REF) | payer OTHER ==
[2021-04-11 13:03] LABS: ALBUMIN 4.1 GM/DL (3.2-5.2); ALT/SGPT 27 U/L (12-78); BILIRUBIN,TOTAL 0.6 MG/DL (0.2-1.0); BLOOD UREA NITROGEN 25 MG/DL (7-18); CALCIUM LEVEL 9.7 MG/DL (8.5-10.1); CARBON DIOXIDE LEVEL 28 MEQ/L (21-32); CHLORIDE LEVEL 97 MEQ/L (98-107); CREATININE FOR GFR 1.18 MG/DL (0.70-1.30); GLOMERULAR FILTRATION RATE > 60.0 (>60); GLUCOSE, FASTING 346 MG/DL (70-100); POTASSIUM SERUM 4.7 MEQ/L (3.5-5.1); SODIUM LEVEL 132 MEQ/L (136-145); TOTAL PROTEIN 8.2 GM/DL (6.4-8.2)
== END ==
LOC: M SFHCCLAY 16:21
PROVIDERS: ATTEND Family Medicine
DX: E11.9 Type 2 diabetes mellitus without complications (principal)

== ENCOUNTER → 2021-05-15 | Outpatient (CLI) | payer OTHER | LOC: M LABSMTC 14:02 | PROVIDERS: ATTEND Anesthesiology | DX: Z01.812 Encounter for preprocedural laboratory examination (principal); Z20.828 Contact with and (suspected) exposure to other viral communicable diseases ==

== ENCOUNTER 2021-05-19 13:13 | Day surgery (SDC) | payer OTHER ==
[~2021-05-19] VITALS: Ht 170.2 cm; Wt 66.7 kg
[~2021-05-19 13:13] MED LIST changes: +NS 1,000 ML IV ONE
[2021-05-19] MEDS ORDERED: LIDOCAINE 2% 100MG/5ML SDV (FOR ANES.) As Ordered ONE ×2 (14:35→15:04)
[2021-05-19] MEDS ORDERED: propofoL 200 MG/20 ML VIAL As Ordered ONE ×2 (14:35→15:04)
[2021-05-19 16:04] VITALS: BP 124/72
--- NOTE | 2021-05-19 16:11 | ROOR ---
Patient Name: Quincy Cormier Procedure Date: 05/19/2021 2:01 PM Date of : 1985 Age: 36 Gender: Male Note Status: Finalized Procedure: Colonoscopy Indications: Chronic diarrhea, Change in bowel habits Providers: Joseph Garcia MD Referring MD: RANJITH DUMONT DO Requesting Provider: Medicines: Monitored Anesthesia Care Complications: No immediate complications. Procedure: Pre-Anesthesia Assessment: - Prior to the procedure, a History and Physical was performed, and patient medications and allergies were reviewed. The patient is competent. The risks and benefits of the procedure and the sedation options and risks were discussed with the patient. All questions were answered and informed consent was obtained. Patient identification and proposed procedure were verified by the physician, the nurse and the anesthesiologist in the procedure room. Mental Status Examination: alert and oriented. Airway Examination: normal oropharyngeal airway and neck mobility. Respiratory Examination: clear to auscultation. CV Examination: normal. Prophylactic Antibiotics: The patient does not require prophylactic antibiotics. Prior Anticoagulants: The patient has taken no previous anticoagulant or antiplatelet agents. ASA Grade Assessment: II - A patient with mild systemic disease. After reviewing the risks and benefits, the patient was deemed in satisfactory condition to undergo the procedure. The anesthesia plan was to use monitored anesthesia care (MAC). Immediately prior to administration of medications, the patient was re-assessed for adequacy to receive sedatives. The heart rate, respiratory rate, oxygen saturations, blood pressure, adequacy of pulmonary ventilation, and response to care were monitored throughout the procedure. The physical status of the patient was re-assessed after the procedure. The Colonoscope was introduced through the anus and advanced to the terminal ileum, with identification of the appendiceal orifice and IC valve. The colonoscopy was performed without difficulty. The patient tolerated the procedure well. The quality of the bowel preparation was good. The terminal ileum, ileocecal valve, appendiceal orifice, and rectum were photographed. Scope insertion time was 2 minutes. Scope withdrawal time was 10 minutes. The total duration of the procedure was 14 minutes. Findings: The digital rectal exam findings include decreased sphincter tone. Pertinent negatives include no palpable rectal lesions. The terminal ileum appeared normal. Patchy mild inflammation characterized by altered vascularity, congestion (edema) and erythema was found from rectum to ascending colon. Biopsies were taken with a cold forceps for histology. Biopsies for histology were taken with a cold forceps from the right colon, left colon, transverse colon and rectosigmoid colon for evaluation of microscopic colitis. Verification of patient identification for the specimen was done by the physician and nurse using the patient's name, date and medical record number. Estimated blood loss was minimal. Non-bleeding external and internal hemorrhoids were found during retroflexion. The hemorrhoids were medium-sized. Impression: - Decreased sphincter tone found on digital rectal exam. - The examined portion of the ileum was normal. - Patchy mild inflammation was found from rectum to ascending colon secondary to colitis. Biopsied. - Non-bleeding external and internal hemorrhoids. Recommendation: - Patient has a contact number available for emergencies. The signs and symptoms of potential delayed complications were discussed with the patient. Return to normal activities tomorrow. Written discharge instructions were provided to the patient. - High fiber diet. - Continue present medications. - Use original regular Metamucil one teaspoon PO daily. - Preparation H ointment: Apply externally daily. - Repeat colonoscopy at age 48 for screening purposes. - Return to GI clinic in [facility] (address [address], [address] [address]) in 4 -- 6 weeks. Please call GI clinic @ [phone] for apppointment date and time. - Return to primary care physician. Procedure Code(s): --- Professional --- 80854, Colonoscopy, flexible; with biopsy, single or multiple Diagnosis Code(s): --- Professional --- K62.89, Other specified diseases of anus and rectum K64.8, Other hemorrhoids K52.9, Noninfective gastroenteritis and colitis, unspecified R19.4, Change in bowel habit CPT copyright 2019 [employer]. All rights reserved. The codes documented in this report are preliminary and upon developer relations manager review may be revised to meet current compliance requirements. Joseph Garcia MD Joseph Garcia MD 05/19/2021 4:10:39 PM Electronically signed by Joseph Garcia MD Number of Addenda: 0 Note Initiated On: 05/19/2021 2:01 PM Estimated Blood Loss: Estimated blood loss: none.
== END 2021-05-19 16:23 | disposition home or self-care (01) ==
LOC: M SDC 13:13
PROVIDERS: ATTEND Internal Medicine Gastroenterology
DX: R19.7 Diarrhea, unspecified (principal); R19.4 Change in bowel habit; K64.8 Other hemorrhoids; K62.89 Other specified diseases of anus and rectum; K52.9 Noninfective gastroenteritis and colitis, unspecified; E10.9 Type 1 diabetes mellitus without complications; Z79.4 Long term (current) use of insulin; I10 Essential (primary) hypertension; Z79.899 Other long term (current) drug therapy; F17.218 Nicotine dependence, cigarettes, with other nicotine-induced disorders

== ENCOUNTER → 2022-04-09 | Outpatient (REF) | payer OTHER ==
[~2022-04-09] MED LIST changes: -NS 1,000 ML IV ONE
[2022-04-10 13:16] LABS: ALBUMIN 3.3 GM/DL (3.2-5.2); ALT/SGPT 25 U/L (12-78); BILIRUBIN,TOTAL 0.3 MG/DL (0.2-1.0); BLOOD UREA NITROGEN 19 MG/DL (7-18); CALCIUM LEVEL 9.4 MG/DL (8.5-10.1); CARBON DIOXIDE LEVEL 31 MEQ/L (21-32); CHLORIDE LEVEL 99 MEQ/L (98-107); CHOLESTEROL LEVEL 166 MG/DL (<200); CHOLESTEROL RISK RATIO 2.075 (<5); CREATININE FOR GFR 1.29 MG/DL (0.70-1.30); GLOMERULAR FILTRATION RATE > 60.0 (>60); GLUCOSE, FASTING 554 MG/DL (70-100); HDL CHOLESTEROL 80 MG/DL (>40); LDL CHOLESTEROL 68 MG/DL (<100); NON-HDL-C 86 MG/DL; POTASSIUM SERUM 5.6 MEQ/L (3.5-5.1); SODIUM LEVEL 135 MEQ/L (136-145); TOTAL PROTEIN 7.2 GM/DL (6.4-8.2); TRIGLYCERIDES LEVEL 88 MG/DL (<150)
[2022-04-10 15:17] LABS: HEMOGLOBIN A1c 12.2 %
== END ==
LOC: M SFHCCLAY 15:20
PROVIDERS: ATTEND Family Medicine
DX: E11.9 Type 2 diabetes mellitus without complications (principal)

== ENCOUNTER → 2022-09-08 | Outpatient (REF) | payer OTHER ==
[~2022-09-08] MED LIST changes: +LEVO1TAB40 PO; -LEVO750T13 PO
[2022-09-08 11:57] LABS: BASO # 0.1 10^3/uL (0.0-0.2); BASO % 1.9 % (0.0-1.0); EOS % 0.6 % (0.0-3.0); HEMOGLOBIN 13.8 g/dl (13.5-17.5); LYMPH # 1.2 10^3/uL (1.5-5.0); LYMPH % 22.9 % (24.0-44.0); MEAN CORPUSCULAR HEMOGLOBIN 32.5 pg (27.0-33.0); MEAN CORPUSCULAR HGB CONC 33.7 g/dl (32.0-36.5); MEAN CORPUSCULAR VOLUME 96.7 fl (80.0-96.0); MONO # 0.6 10^3/uL (0.0-0.8); MONO % 11.8 % (2.0-8.0); NEUTROPHILS # 3.2 10^3/uL (1.5-8.5); NEUTROPHILS % 62.6 % (36.0-66.0); PLATELET COUNT, AUTOMATED 179 10^3/uL (150-450); RED BLOOD COUNT 4.24 10^6/uL (4.30-6.10); WHITE BLOOD COUNT 5.2 10^3/uL (4.0-10.0)
[2022-09-08 14:25] LABS: ALBUMIN 3.5 GM/DL (3.2-5.2); ALT/SGPT 24 U/L (12-78); BILIRUBIN,TOTAL 0.5 MG/DL (0.2-1.0); BLOOD UREA NITROGEN 18 MG/DL (7-18); CALCIUM LEVEL 8.9 MG/DL (8.5-10.1); CARBON DIOXIDE LEVEL 29 MEQ/L (21-32); CHLORIDE LEVEL 87 MEQ/L (98-107); CREATININE FOR GFR 1.18 MG/DL (0.70-1.30); GLOMERULAR FILTRATION RATE > 60.0 (>60); GLUCOSE, FASTING 529 MG/DL (70-100); SODIUM LEVEL 128 MEQ/L (136-145); TOTAL PROTEIN 7.5 GM/DL (6.4-8.2)
== END ==
LOC: M SFHCCLAY 09:21
PROVIDERS: ATTEND Family Medicine
DX: I10 Essential (primary) hypertension (principal); E11.9 Type 2 diabetes mellitus without complications

== ENCOUNTER → 2022-10-01 | Outpatient (REF) | payer OTHER | LOC: M LAB REF 15:56 → M SFHCDERM 15:56 | PROVIDERS: ATTEND Nurse Practitioner Family | DX: B07.9 Viral wart, unspecified (principal); L57.0 Actinic keratosis ==

== ENCOUNTER → 2022-12-25 | Outpatient (REF) | payer OTHER ==
[2022-12-25 15:57] LABS: BASO # 0.1 10^3/uL (0.0-0.2); BASO % 1.5 % (0.0-1.0); EOS # 0.1 10^3/uL (0.0-0.5); EOS % 1.5 % (0.0-3.0); HEMATOCRIT 29.3 % (42.0-52.0); HEMOGLOBIN 9.5 g/dl (13.5-17.5); LYMPH # 1.5 10^3/uL (1.5-5.0); LYMPH % 22.2 % (24.0-44.0); MEAN CORPUSCULAR HEMOGLOBIN 31.4 pg (27.0-33.0); MEAN CORPUSCULAR HGB CONC 32.4 g/dl (32.0-36.5); MEAN CORPUSCULAR VOLUME 96.7 fl (80.0-96.0); MONO # 0.5 10^3/uL (0.0-0.8); NEUTROPHILS # 4.4 10^3/uL (1.5-8.5); NEUTROPHILS % 66.6 % (36.0-66.0); PLATELET COUNT, AUTOMATED 208 10^3/uL (150-450); RED BLOOD COUNT 3.03 10^6/uL (4.30-6.10); WHITE BLOOD COUNT 6.7 10^3/uL (4.0-10.0)
[2022-12-25 16:13] LABS: ERYTHROCYTE SEDIMENTATION RATE 93 mm/hr (0-15)
[2022-12-25 16:33] LABS: ALBUMIN 1.9 G/DL (3.2-5.2); ALKALINE PHOSPHATASE 109 U/L (46-116); ALT/SGPT 14 U/L (7.0-40); AST/SGOT 15 U/L (<34); BILIRUBIN,TOTAL 0.2 MG/DL (0.3-1.2); BLOOD UREA NITROGEN 11 MG/DL (9-23); CALCIUM LEVEL 8.6 MG/DL (8.5-10.1); CARBON DIOXIDE LEVEL 26 MMOL/L (20-31); CHLORIDE LEVEL 100 MMOL/L (98-107); CREATININE FOR GFR 0.94 MG/DL (0.70-1.30); GLOMERULAR FILTRATION RATE > 60.0 (>60); GLUCOSE, FASTING 138 MG/DL (60-100); POTASSIUM SERUM 3.9 MMOL/L (3.5-5.1); SODIUM LEVEL 134 MMOL/L (136-145); TOTAL PROTEIN 6.1 G/DL (5.7-8.2)
== END ==
LOC: M LAB REF 15:20
PROVIDERS: ATTEND Internal Medicine Infectious Disease
DX: L02.612 Cutaneous abscess of left foot (principal)

== ENCOUNTER → 2023-01-08 | Outpatient (REF) | payer OTHER ==
[2023-01-08 19:59] LABS: BASO # 0.1 10^3/uL (0.0-0.2); BASO % 1.5 % (0.0-1.0); EOS # 0.2 10^3/uL (0.0-0.5); EOS % 3.1 % (0.0-3.0); HEMOGLOBIN 10.2 g/dl (13.5-17.5); LYMPH # 1.8 10^3/uL (1.5-5.0); LYMPH % 26.8 % (24.0-44.0); MEAN CORPUSCULAR HEMOGLOBIN 31.1 pg (27.0-33.0); MEAN CORPUSCULAR HGB CONC 32.9 g/dl (32.0-36.5); MEAN CORPUSCULAR VOLUME 94.5 fl (80.0-96.0); MONO # 0.8 10^3/uL (0.0-0.8); MONO % 11.9 % (2.0-8.0); NEUTROPHILS # 3.9 10^3/uL (1.5-8.5); NEUTROPHILS % 56.4 % (36.0-66.0); PLATELET COUNT, AUTOMATED 273 10^3/uL (150-450); RED BLOOD COUNT 3.28 10^6/uL (4.30-6.10); WHITE BLOOD COUNT 6.8 10^3/uL (4.0-10.0)
[2023-01-08 20:17] LABS: ERYTHROCYTE SEDIMENTATION RATE > 130 mm/hr (0-15)
[2023-01-08 20:25] LABS: ALBUMIN 2.7 G/DL (3.2-5.2); ALKALINE PHOSPHATASE 103 U/L (46-116); ALT/SGPT 27 U/L (7.0-40); AST/SGOT 31 U/L (<34); BILIRUBIN,TOTAL 0.3 MG/DL (0.3-1.2); BLOOD UREA NITROGEN 20 MG/DL (9-23); CALCIUM LEVEL 8.9 MG/DL (8.5-10.1); CARBON DIOXIDE LEVEL 26 MMOL/L (20-31); CHLORIDE LEVEL 98 MMOL/L (98-107); CREATININE FOR GFR 1.02 MG/DL (0.70-1.30); GLOMERULAR FILTRATION RATE > 60.0 (>60); GLUCOSE, FASTING 211 MG/DL (60-100); POTASSIUM SERUM 4.8 MMOL/L (3.5-5.1); SODIUM LEVEL 132 MMOL/L (136-145); TOTAL PROTEIN 6.9 G/DL (5.7-8.2)
== END ==
LOC: M LAB REF 19:18
PROVIDERS: ATTEND Internal Medicine Infectious Disease
DX: L02.612 Cutaneous abscess of left foot (principal)

== ENCOUNTER → 2023-01-14 | Outpatient (REF) | payer OTHER | LOC: M LAB REF 16:49 | PROVIDERS: ATTEND Internal Medicine Infectious Disease | DX: L02.612 Cutaneous abscess of left foot (principal) ==

== ENCOUNTER → 2023-01-22 | Outpatient (REF) | payer OTHER ==
[2023-01-22 17:45] LABS: BASO # 0.1 10^3/uL (0.0-0.2); BASO % 1.8 % (0.0-1.0); EOS # 0.2 10^3/uL (0.0-0.5); HEMATOCRIT 36.2 % (42.0-52.0); HEMOGLOBIN 11.8 g/dl (13.5-17.5); LYMPH % 27.4 % (24.0-44.0); MEAN CORPUSCULAR HEMOGLOBIN 30.6 pg (27.0-33.0); MEAN CORPUSCULAR HGB CONC 32.6 g/dl (32.0-36.5); MONO # 0.6 10^3/uL (0.0-0.8); MONO % 7.5 % (2.0-8.0); NEUTROPHILS # 4.4 10^3/uL (1.5-8.5); PLATELET COUNT, AUTOMATED 182 10^3/uL (150-450); RED BLOOD COUNT 3.85 10^6/uL (4.30-6.10); WHITE BLOOD COUNT 7.3 10^3/uL (4.0-10.0)
[2023-01-22 18:16] LABS: C REACTIVE PROTEIN QUANTITATIV < 0.40 MG/DL (<1.0)
[2023-01-22 18:18] LABS: ALBUMIN 3.2 G/DL (3.2-5.2); ALKALINE PHOSPHATASE 122 U/L (46-116); ALT/SGPT 49 U/L (7.0-40); AST/SGOT 33 U/L (<34); BILIRUBIN,TOTAL 0.4 MG/DL (0.3-1.2); BLOOD UREA NITROGEN 22 MG/DL (9-23); CALCIUM LEVEL 9.4 MG/DL (8.5-10.1); CARBON DIOXIDE LEVEL 28 MMOL/L (20-31); CHLORIDE LEVEL 101 MMOL/L (98-107); CREATININE FOR GFR 1.05 MG/DL (0.70-1.30); GLOMERULAR FILTRATION RATE > 60.0 (>60); GLUCOSE, FASTING 94 MG/DL (60-100); POTASSIUM SERUM 4.6 MMOL/L (3.5-5.1); SODIUM LEVEL 136 MMOL/L (136-145); TOTAL PROTEIN 7.2 G/DL (5.7-8.2)
[2023-01-22 18:23] LABS: ERYTHROCYTE SEDIMENTATION RATE 67 mm/hr (0-15)
== END ==
LOC: M LABDRAWC 16:51
PROVIDERS: ATTEND Internal Medicine Infectious Disease
DX: L02.612 Cutaneous abscess of left foot (principal)

== ENCOUNTER → 2023-01-29 | Outpatient (REF) | payer OTHER ==
[2023-01-29 18:45] LABS: BASO # 0.1 10^3/uL (0.0-0.2); BASO % 1.6 % (0.0-1.0); EOS # 0.2 10^3/uL (0.0-0.5); HEMATOCRIT 33.3 % (42.0-52.0); HEMOGLOBIN 11.1 g/dl (13.5-17.5); LYMPH # 1.8 10^3/uL (1.5-5.0); LYMPH % 22.3 % (24.0-44.0); MEAN CORPUSCULAR HEMOGLOBIN 30.9 pg (27.0-33.0); MEAN CORPUSCULAR HGB CONC 33.3 g/dl (32.0-36.5); MEAN CORPUSCULAR VOLUME 92.8 fl (80.0-96.0); MONO # 0.7 10^3/uL (0.0-0.8); MONO % 8.2 % (2.0-8.0); NEUTROPHILS # 5.1 10^3/uL (1.5-8.5); NEUTROPHILS % 64.6 % (36.0-66.0); PLATELET COUNT, AUTOMATED 128 10^3/uL (150-450); RED BLOOD COUNT 3.59 10^6/uL (4.30-6.10)
== END ==
LOC: M LABDRWAD 18:19
PROVIDERS: ATTEND Internal Medicine Infectious Disease
DX: Z00.00 Encounter for general adult medical examination without abnormal findings (principal); M86.9 Osteomyelitis, unspecified; E10.10 Type 1 diabetes mellitus with ketoacidosis without coma

== ENCOUNTER → 2023-03-11 | Outpatient (REF) | payer OTHER ==
[2023-03-11 12:23] LABS: HEMATOCRIT 35.4 % (42.0-52.0); HEMOGLOBIN 11.9 g/dl (13.5-17.5); MEAN CORPUSCULAR HEMOGLOBIN 30.7 pg (27.0-33.0); MEAN CORPUSCULAR HGB CONC 33.6 g/dl (32.0-36.5); MEAN CORPUSCULAR VOLUME 91.5 fl (80.0-96.0); PLATELET COUNT, AUTOMATED 220 10^3/uL (150-450); RED BLOOD COUNT 3.87 10^6/uL (4.30-6.10); WHITE BLOOD COUNT 6.3 10^3/uL (4.0-10.0)
[2023-03-11 12:28] LABS: HEMOGLOBIN A1c 9.8 % (4.0-6.0)
[2023-03-11 13:05] LABS: ALBUMIN 3.3 G/DL (3.2-5.2); ALKALINE PHOSPHATASE 147 U/L (46-116); ALT/SGPT 38 U/L (7.0-40); AST/SGOT 33 U/L (<34); BILIRUBIN,TOTAL 0.3 MG/DL (0.3-1.2); BLOOD UREA NITROGEN 22 MG/DL (9-23); CALCIUM LEVEL 9.1 MG/DL (8.5-10.1); CARBON DIOXIDE LEVEL 31 MMOL/L (20-31); CHLORIDE LEVEL 96 MMOL/L (98-107); CHOLESTEROL LEVEL 145 MG/DL (<200); CHOLESTEROL RISK RATIO 2.74 (<5); CREATININE FOR GFR 0.94 MG/DL (0.70-1.30); GLOMERULAR FILTRATION RATE > 60.0 (>60); GLUCOSE, FASTING 468 MG/DL (60-100); HDL CHOLESTEROL 52.9 MG/DL (>40); LDL CHOLESTEROL 75.3 MG/DL (<100); NON-HDL-C 92.1 MG/DL; SODIUM LEVEL 132 MMOL/L (136-145); TOTAL PROTEIN 6.7 G/DL (5.7-8.2); TRIGLYCERIDES LEVEL 84 MG/DL (<150)
== END ==
LOC: M SFHCCLAY 07:11
PROVIDERS: ATTEND Family Medicine
DX: E11.9 Type 2 diabetes mellitus without complications (principal); I10 Essential (primary) hypertension

== ENCOUNTER → 2023-07-20 | Outpatient (CLI) | payer OTHER | LOC: M SOG 08:11 | PROVIDERS: ATTEND Physician Assistant | DX: M79.641 Pain in right hand (principal); M79.89 Other specified soft tissue disorders ==

== ENCOUNTER → 2023-12-08 | Outpatient (REF) | payer OTHER | LOC: M LAB REF 17:17 | PROVIDERS: ATTEND Plastic Surgery Surgery of the Hand | DX: L85.9 Epidermal thickening, unspecified (principal) ==

== ENCOUNTER 2024-02-25 09:55 | Inpatient (IN) | payer OTHER ==
[2024-02-25] VITALS (7 sets, daily range): BP systolic 123–145; BP diastolic 63–86; TEMP 97.2–97.9; O2SAT 95–100
[~2024-02-25] VITALS: Ht 170.2 cm; Wt 69.3 kg
[2024-02-25] MEDS ORDERED: VANCOMYCIN HCL 1,250 MG in NS 250 ML IV ONE (10:45)
[2024-02-25] MEDS: VANCOMYCIN HCL 750 MG, VIAL MATE ADAPTER 1 EACH in D5W 250 ML IV ONE (11:10)
[2024-02-25 11:15] LABS: BASO % 0.2 % (0.0-1.0); EOS % 0.1 % (0.0-3.0); HEMATOCRIT 30.1 % (42.0-52.0); HEMOGLOBIN 10.7 g/dl (13.5-17.5); LYMPH # 0.8 10^3/uL (1.5-5.0); LYMPH % 5.7 % (24.0-44.0); MEAN CORPUSCULAR HEMOGLOBIN 32.3 pg (27.0-33.0); MEAN CORPUSCULAR HGB CONC 35.5 g/dl (32.0-36.5); MEAN CORPUSCULAR VOLUME 90.9 fl (80.0-96.0); MONO # 1.1 10^3/uL (0.0-0.8); MONO % 8.7 % (2.0-8.0); NEUTROPHILS # 11.1 10^3/uL (1.5-8.5); NEUTROPHILS % 84.8 % (36.0-66.0); PLATELET COUNT, AUTOMATED 142 10^3/uL (150-450); RED BLOOD COUNT 3.31 10^6/uL (4.30-6.10); WHITE BLOOD COUNT 13.1 10^3/uL (4.0-10.0)
[2024-02-25 11:27] LABS: ERYTHROCYTE SEDIMENTATION RATE > 130 mm/hr (0-15)
[2024-02-25 11:34] LABS: C REACTIVE PROTEIN QUANTITATIV 13.1 MG/DL (<1.0)
[2024-02-25 11:36] LABS: ALBUMIN 2.9 G/DL (3.2-5.2); BILIRUBIN,DIRECT 0.3 MG/DL (<0.4); BILIRUBIN,TOTAL 0.6 MG/DL (0.3-1.2); CALCIUM LEVEL 8.7 MG/DL (8.5-10.1); CREATININE FOR GFR 1.45 MG/DL (0.70-1.30); GLOMERULAR FILTRATION RATE 57.1 (>60); POTASSIUM SERUM 3.6 MMOL/L (3.5-5.1); TOTAL PROTEIN 6.8 G/DL (5.7-8.2)
[2024-02-25] MEDS: ACETAMINOPHEN 500 MG TAB PO ONE (12:08)
[2024-02-25] MEDS: VANCOMYCIN HCL 500 MG in D5W MINI-BAG PLUS 100 ML IV ONE (12:48)
[2024-02-25] MEDS ORDERED: INSU100I40 INJ (13:46)
[2024-02-25] MEDS ORDERED: CLIN-250 PO (13:46)
[2024-02-25] MEDS ORDERED: HOME MED LIST COMPLETE! XX SCH (13:50)
[2024-02-25] MEDS ORDERED: GLUCOSE 4 GM CHEW PO PRN (15:10)
[2024-02-25] MEDS ORDERED: GLUCAGON INJ 1MG VIAL SC PRN (15:10)
[2024-02-25 15:16] LABS: HEMOGLOBIN A1c 10.6 % (4.0-6.0)
[2024-02-25] MEDS: NS 1,000 ML IV ONE (15:47)
[2024-02-25] MEDS: INSULIN LISPRO (NovoLOG) PER UNIT SC SCH ×2 (17:30→21:00)
[2024-02-25] MEDS ORDERED: ACETAMINOPHEN 1000MG 100ML IV BAG As Ordered ONE (18:41)
[2024-02-25] MEDS ORDERED: ePHEDrine SULFATE 25 MG/5 ML(5MG/ML) SYRINGE As Ordered ONE (18:41)
[2024-02-25] MEDS ORDERED: METOCLOPRAMIDE INJ 10MG/2ML VIAL As Ordered ONE (18:41)
[2024-02-25] MEDS ORDERED: LIDOCAINE 2% 100MG/5ML SDV (FOR ANES.) As Ordered ONE (18:41)
[2024-02-25] MEDS ORDERED: MIDAZOLAM INJ 2MG/2ML VIAL As Ordered ONE (18:41)
[2024-02-25] MEDS ORDERED: propofoL 200 MG/20 ML VIAL As Ordered ONE (18:41)
[2024-02-25] MEDS ORDERED: ONDANSETRON 4MG 2ML VIAL As Ordered ONE (18:41)
[2024-02-25] MEDS ORDERED: fentaNYL 100 MCG/2 ML INJECTION As Ordered ONE (18:41)
[2024-02-25] MEDS: ceFAZolin 2 GM/D5W 50 ML IV BAG As Ordered ONE (18:44)
[2024-02-25] MEDS: LIDOCAINE 1% SDV 30ML VIAL As Ordered ONE (18:52)
[2024-02-25] MEDS: BACITRACIN OINTMENT 30GM TUBE As Ordered ONE (18:54)
[2024-02-25] MEDS ORDERED: fentaNYL 100 MCG/2 ML INJECTION IV PRN (18:55)
[2024-02-25] MEDS ORDERED: MEPERIDINE 25 MG/ML 1ML VIAL IV PRN (18:55)
[2024-02-25] MEDS ORDERED: diphenhydrAMINE 50MG/ML VIAL IV PRN (18:55)
[2024-02-25] MEDS: LR 1,000 ML IV SCH (18:55)
[2024-02-25] MEDS ORDERED: ONDANSETRON 4MG 2ML VIAL IV PRN (18:55)
[2024-02-25] MEDS ORDERED: HYDROMORPHONE HCL 0.5 MG/ 0.5 ML SYRINGE IV PRN (18:55)
[2024-02-25] MEDS ORDERED: METOCLOPRAMIDE INJ 10MG/2ML VIAL IV PRN (18:55)
[2024-02-25] MEDS: cefTRIAXone SOD 2 GM in D5W MINI-BAG PLUS 50 ML IV SCH (19:47)
[2024-02-25] MEDS: VANCOMYCIN HCL 1,000 MG, VIAL MATE ADAPTER 1 EACH in D5W 250 ML IV SCH (21:03)
[2024-02-25] MEDS: LEVEMIR (INSULIN DETEMIR) 1 UNITS/0.01ML SC SCH (21:03)
[2024-02-26] VITALS (8 sets, daily range): BP systolic 154–165; BP diastolic 85–90; TEMP 97.3–97.9; O2SAT 82–100
[2024-02-26 07:17] LABS: BASO # 0.1 10^3/uL (0.0-0.2); BASO % 0.4 % (0.0-1.0); EOS % 0.2 % (0.0-3.0); HEMATOCRIT 27.1 % (42.0-52.0); HEMOGLOBIN 9.5 g/dl (13.5-17.5); LYMPH % 8.5 % (24.0-44.0); MEAN CORPUSCULAR HEMOGLOBIN 31.9 pg (27.0-33.0); MEAN CORPUSCULAR HGB CONC 35.1 g/dl (32.0-36.5); MEAN CORPUSCULAR VOLUME 90.9 fl (80.0-96.0); MONO # 1.3 10^3/uL (0.0-0.8); MONO % 11.8 % (2.0-8.0); NEUTROPHILS # 8.8 10^3/uL (1.5-8.5); NEUTROPHILS % 78.7 % (36.0-66.0); PLATELET COUNT, AUTOMATED 136 10^3/uL (150-450); RED BLOOD COUNT 2.98 10^6/uL (4.30-6.10); WHITE BLOOD COUNT 11.2 10^3/uL (4.0-10.0)
[2024-02-26] MEDS: INSULIN LISPRO (NovoLOG) PER UNIT SC SCH ×3 (07:30→12:08)
[2024-02-26 08:36] LABS: BLOOD UREA NITROGEN 23 MG/DL (9-23); CALCIUM LEVEL 7.7 MG/DL (8.5-10.1); CARBON DIOXIDE LEVEL 20 MMOL/L (20-31); CHLORIDE LEVEL 102 MMOL/L (98-107); GLOMERULAR FILTRATION RATE > 60.0 (>60); GLUCOSE, FASTING 76 MG/DL (60-100); POTASSIUM SERUM 2.9 MMOL/L (3.5-5.1); SODIUM LEVEL 130 MMOL/L (136-145)
[2024-02-26] MEDS: THIAMINE 100 MG TAB PO SCH (09:00)
[2024-02-26] MEDS: ACETAMINOPHEN TAB 650MG DOSE (2X325MG) PO PRN (09:38)
[2024-02-26] MEDS ORDERED: LORazepam 2 MG TAB PO PRN (10:15)
[2024-02-26] MEDS ORDERED: NORCO, ANEXSIA 5/325MG TABLET (HYDROcodone/ACETAMINOPHEN) PO PRN (10:25)
[2024-02-26] MEDS: FOLIC ACID 1MG TAB PO SCH (12:05)
[2024-02-26] MEDS: POTASSIUM CHLORIDE 10MEQ SR TABLET PO ONE (12:05)
[2024-02-26] MEDS: MULTIVITAMINS/MINERALS THERAP 1 TAB PO SCH (12:05)
[2024-02-26] MEDS ORDERED: DEXTROSE 50% 50ML SYRINGE IV PRN (13:35)
[2024-02-26] MEDS ORDERED: GLUCAGON INJ 1MG VIAL SC PRN (13:35)
[2024-02-26] MEDS ORDERED: GLUCOSE 4 GM CHEW PO PRN (13:35)
[2024-02-26 14:54] LABS: VANCOMYCIN RANDOM 20.3 UG/ML
[2024-02-26] MEDS: LOPERAMIDE 2 MG CAPLET PO PRN (18:06)
[2024-02-26] MEDS ORDERED: LEVEMIR (INSULIN DETEMIR) 1 UNITS/0.01ML SC SCH (21:00)
[2024-02-26] MEDS: POTASSIUM CHLORIDE 10MEQ SR TABLET PO SCH (21:26)
[2024-02-26] MEDS: LEVEMIR (INSULIN DETEMIR) 1 UNITS/0.01ML SC SCH (21:28)
[2024-02-27] VITALS (10 sets, daily range): BP systolic 105–152; BP diastolic 64–82; TEMP 97.2–97.7; O2SAT 95–100
[2024-02-27] MEDS: DEXTROSE 50% 50ML SYRINGE IV PRN (05:40)
[2024-02-27 06:16] LABS: BASO # 0.1 10^3/uL (0.0-0.2); BASO % 0.6 % (0.0-1.0); EOS # 0.1 10^3/uL (0.0-0.5); EOS % 1.1 % (0.0-3.0); HEMATOCRIT 26.1 % (42.0-52.0); HEMOGLOBIN 9.1 g/dl (13.5-17.5); LYMPH # 1.1 10^3/uL (1.5-5.0); LYMPH % 13.1 % (24.0-44.0); MEAN CORPUSCULAR HEMOGLOBIN 32.3 pg (27.0-33.0); MEAN CORPUSCULAR HGB CONC 34.9 g/dl (32.0-36.5); MEAN CORPUSCULAR VOLUME 92.6 fl (80.0-96.0); MONO # 1.2 10^3/uL (0.0-0.8); MONO % 14.3 % (2.0-8.0); NEUTROPHILS # 5.9 10^3/uL (1.5-8.5); NEUTROPHILS % 70.7 % (36.0-66.0); PLATELET COUNT, AUTOMATED 139 10^3/uL (150-450); RED BLOOD COUNT 2.82 10^6/uL (4.30-6.10); WHITE BLOOD COUNT 8.4 10^3/uL (4.0-10.0)
[2024-02-27] MEDS: D5W/0.9% SODIUM CHLORIDE 1,000 ML IV SCH (06:23)
[2024-02-27 06:39] LABS: VANCOMYCIN RANDOM 11.5 UG/ML
[2024-02-27 06:40] LABS: BLOOD UREA NITROGEN 18 MG/DL (9-23); CALCIUM LEVEL 7.6 MG/DL (8.5-10.1); CARBON DIOXIDE LEVEL 19 MMOL/L (20-31); CHLORIDE LEVEL 108 MMOL/L (98-107); CREATININE FOR GFR 1.06 MG/DL (0.70-1.30); GLOMERULAR FILTRATION RATE > 60.0 (>60); GLUCOSE, FASTING 76 MG/DL (60-100); SODIUM LEVEL 137 MMOL/L (136-145)
[2024-02-27] MEDS: VANCOMYCIN HCL 1,000 MG, VIAL MATE ADAPTER 1 EACH in D5W 250 ML IV SCH (08:24)
[2024-02-27] MEDS: POTASSIUM CHLORIDE 10MEQ SR TABLET PO SCH (08:25)
[2024-02-27] MEDS: INSULIN LISPRO (NovoLOG) PER UNIT SC STA (14:10)
[2024-02-27] MEDS: NS 1,000 ML IV SCH (14:17)
[2024-02-27] MEDS ORDERED: GLUCAGON INJ 1MG VIAL SC PRN (15:10)
[2024-02-27] MEDS ORDERED: INSULIN LISPRO (NovoLOG) PER UNIT SC PRN (15:10)
[2024-02-27] MEDS ORDERED: DEXTROSE 50% 50ML SYRINGE IV PRN (15:10)
[2024-02-27] MEDS ORDERED: GLUCOSE 4 GM CHEW PO PRN (15:10)
[2024-02-27] MEDS ORDERED: dexmedeTOMIDine (4MCG/ML)200MCG/50ML BTL (PRECEDEX) As Ordered ONE (15:27)
[2024-02-27] MEDS ORDERED: MEPERIDINE 25 MG/ML 1ML VIAL IV PRN (17:00)
[2024-02-27] MEDS ORDERED: oxyCODONE 5MG TAB PO PRN (17:00)
[2024-02-27] MEDS ORDERED: PROMETHAZINE 25MG/ML 1ML VIAL IV PRN (17:00)
[2024-02-27] MEDS ORDERED: HYDROMORPHONE HCL 0.5 MG/ 0.5 ML SYRINGE IV PRN (17:00)
[2024-02-27] MEDS ORDERED: fentaNYL 100 MCG/2 ML INJECTION IV PRN (17:00)
[2024-02-27] MEDS ORDERED: ONDANSETRON 4MG 2ML VIAL IV PRN (17:00)
[2024-02-27] MEDS: LR 1,000 ML IV SCH (17:00)
[2024-02-27] MEDS ORDERED: LEVEMIR (INSULIN DETEMIR) 1 UNITS/0.01ML SC SCH (21:00)
[2024-02-27] MEDS: INSULIN LISPRO (NovoLOG) PER UNIT SC ONE (23:02)
[2024-02-27] MEDS: LEVEMIR (INSULIN DETEMIR) 1 UNITS/0.01ML SC ONE (23:02)
[2024-02-28 01:29] VITALS: BP 143/82; TEMP 98.2; O2SAT 99
[2024-02-28 06:54] VITALS: BP 156/91; TEMP 97.5; O2SAT 100
[2024-02-28 06:57] VITALS: BP 156/91
[2024-02-28 07:15] LABS: BASO # 0.1 10^3/uL (0.0-0.2); BASO % 0.8 % (0.0-1.0); EOS # 0.2 10^3/uL (0.0-0.5); EOS % 1.8 % (0.0-3.0); HEMATOCRIT 25.2 % (42.0-52.0); HEMOGLOBIN 8.6 g/dl (13.5-17.5); LYMPH % 11.3 % (24.0-44.0); MEAN CORPUSCULAR HEMOGLOBIN 32.1 pg (27.0-33.0); MEAN CORPUSCULAR HGB CONC 34.1 g/dl (32.0-36.5); MONO # 0.9 10^3/uL (0.0-0.8); MONO % 10.9 % (2.0-8.0); NEUTROPHILS # 6.5 10^3/uL (1.5-8.5); NEUTROPHILS % 74.9 % (36.0-66.0); PLATELET COUNT, AUTOMATED 151 10^3/uL (150-450); RED BLOOD COUNT 2.68 10^6/uL (4.30-6.10); WHITE BLOOD COUNT 8.7 10^3/uL (4.0-10.0)
[2024-02-28] MEDS ORDERED: KCL 10MEQ/100ML SWI (KRUN) 10 MEQ in IV 1 EA IV SCH (07:20)
[2024-02-28 08:03] LABS: BLOOD UREA NITROGEN 20 MG/DL (9-23); CALCIUM LEVEL 7.6 MG/DL (8.5-10.1); CARBON DIOXIDE LEVEL 19 MMOL/L (20-31); CHLORIDE LEVEL 106 MMOL/L (98-107); CREATININE FOR GFR 1.21 MG/DL (0.70-1.30); GLOMERULAR FILTRATION RATE > 60.0 (>60); GLUCOSE, FASTING 101 MG/DL (60-100); SODIUM LEVEL 132 MMOL/L (136-145)
[2024-02-28 08:29] LABS: VANCOMYCIN RANDOM 20.5 UG/ML
[2024-02-28] MEDS: LEVEMIR (INSULIN DETEMIR) 1 UNITS/0.01ML SC SCH (08:34)
[2024-02-28] MEDS: VANCOMYCIN HCL 750 MG, VIAL MATE ADAPTER 1 EACH in D5W 250 ML IV SCH ×2 (10:35→12:09)
[2024-02-28 18:01] VITALS: BP 156/91
[2024-02-28] MEDS: LevoFLOXacin 750 MG TABLET PO SCH (18:50)
[2024-02-28 19:39] LABS: HEPATITIS B SURFACE ANTIBODY NEGATIVE (POSITIVE)
[2024-02-28 20:04] LABS: HIV 1&2 SCREEN NEGATIVE (NEGATIVE)
[2024-02-28 20:12] LABS: HEPATITIS C VIRUS ABY INDEX < 0.02 INDEX (<0.8)
[2024-02-28 20:20] VITALS: BP 148/82; TEMP 97.3; O2SAT 100
[2024-02-28] MEDS ORDERED: LEVEMIR (INSULIN DETEMIR) 1 UNITS/0.01ML SC SCH ×2 (21:00)
[2024-02-28] MEDS: LEVEMIR (INSULIN DETEMIR) 1 UNITS/0.01ML SC ONE (21:28)
[2024-02-28] MEDS: LACTOBACILLUS ACIDOPHILUS CAP (BACID) PO SCH (21:28)
[2024-02-28 22:00] VITALS: BP 156/91
[2024-02-29 05:50] VITALS: BP 155/93; TEMP 97.7; O2SAT 100
[2024-02-29 05:52] VITALS: BP 155/92
[2024-02-29 06:00] VITALS: BP 156/91
[2024-02-29] MEDS: INSULIN LISPRO (NovoLOG) PER UNIT SC SCH ×2 (07:30)
[2024-02-29] MEDS ORDERED: INSULIN LISPRO (NovoLOG) PER UNIT SC SCH (07:30)
[2024-02-29 08:23] VITALS: BP 157/90
[2024-02-29] MEDS: LEVEMIR (INSULIN DETEMIR) 1 UNITS/0.01ML SC SCH (08:24)
[2024-02-29] MEDS ORDERED: LEVEMIR (INSULIN DETEMIR) 1 UNITS/0.01ML SC SCH (09:00)
[2024-02-29 09:11] LABS: BASO # 0.1 10^3/uL (0.0-0.2); BASO % 0.5 % (0.0-1.0); EOS # 0.2 10^3/uL (0.0-0.5); EOS % 2.3 % (0.0-3.0); HEMATOCRIT 25.9 % (42.0-52.0); HEMOGLOBIN 8.9 g/dl (13.5-17.5); LYMPH # 0.9 10^3/uL (1.5-5.0); LYMPH % 9.8 % (24.0-44.0); MEAN CORPUSCULAR HEMOGLOBIN 32.4 pg (27.0-33.0); MEAN CORPUSCULAR HGB CONC 34.4 g/dl (32.0-36.5); MEAN CORPUSCULAR VOLUME 94.2 fl (80.0-96.0); MONO # 0.9 10^3/uL (0.0-0.8); MONO % 9.6 % (2.0-8.0); NEUTROPHILS # 7.3 10^3/uL (1.5-8.5); NEUTROPHILS % 77.4 % (36.0-66.0); PLATELET COUNT, AUTOMATED 187 10^3/uL (150-450); RED BLOOD COUNT 2.75 10^6/uL (4.30-6.10); WHITE BLOOD COUNT 9.4 10^3/uL (4.0-10.0)
[2024-02-29 09:25] VITALS: BP 156/90; TEMP 97.5; O2SAT 99
[2024-02-29] MEDS ORDERED: RISATAB3 PO (09:28)
[2024-02-29] MEDS ORDERED: LEVO1TAB40 PO (09:28)
[2024-02-29] MEDS ORDERED: METR-265 PO (09:28)
[2024-02-29] MEDS ORDERED: FOLI1TAB11 PO (09:28)
[2024-02-29] MEDS ORDERED: AMLO1TAB25 PO (09:28)
[2024-02-29 09:33] LABS: BLOOD UREA NITROGEN 22 MG/DL (9-23); CARBON DIOXIDE LEVEL 18 MMOL/L (20-31); CHLORIDE LEVEL 106 MMOL/L (98-107); CREATININE FOR GFR 1.37 MG/DL (0.70-1.30); GLOMERULAR FILTRATION RATE > 60.0 (>60); GLUCOSE, FASTING 184 MG/DL (60-100); POTASSIUM SERUM 4.3 MMOL/L (3.5-5.1); SODIUM LEVEL 133 MMOL/L (136-145)
[2024-02-29 12:31] VITALS: BP 156/90; TEMP 97.6; O2SAT 100
[2024-02-29] MEDS: BOOSTRIX VACCINE (TETANUS/DIPHTH/ACEL. PERTUSSIS) 0.5ML SYR IM ONE (13:17)
[2024-02-29] MEDS ORDERED: HUMA100I5 SC (13:43)
[2024-02-29] MEDS ORDERED: INSU100I40 SQ (13:43)
== END 2024-02-29 15:10 | disposition home or self-care (01) | DRG 710 ==
LOC: M ED 09:55 → M ED INP 13:15 → M MS5PR 14:35
PROVIDERS: ADMIT Internal Medicine Nephrology; ATTEND Internal Medicine
PROC: 0PBV0ZZ Excision of Left Finger Phalanx, Open Approach (ICD-10-PCS; principal; 2024-02-25 17:30)
PROC: 0PBV0ZZ Excision of Left Finger Phalanx, Open Approach (ICD-10-PCS; 2024-02-27)
DX: A41.9 Sepsis, unspecified organism (principal); N17.9 Acute kidney failure, unspecified; E10.649 Type 1 diabetes mellitus with hypoglycemia without coma; E87.1 Hypo-osmolality and hyponatremia; I10 Essential (primary) hypertension; L02.512 Cutaneous abscess of left hand; L03.114 Cellulitis of left upper limb; Z79.4 Long term (current) use of insulin; Z79.899 Other long term (current) drug therapy; K64.8 Other hemorrhoids; E87.6 Hypokalemia; M86.442 Chronic osteomyelitis with draining sinus, left hand; F10.20 Alcohol dependence, uncomplicated; Z89.421 Acquired absence of other right toe(s); Z89.422 Acquired absence of other left toe(s); B96.29 Other Escherichia coli [E. coli] as the cause of diseases classified elsewhere; B96.1 Klebsiella pneumoniae [K. pneumoniae] as the cause of diseases classified elsewhere; B95.61 Methicillin susceptible Staphylococcus aureus infection as the cause of diseases classified elsewhere; B95.5 Unspecified streptococcus as the cause of diseases classified elsewhere

== ENCOUNTER → 2024-03-07 | Outpatient (CLI) | payer OTHER ==
[~2024-03-07] MED LIST changes: +CLIN-250 PO; +FOLI1TAB11 PO; +HUMA100I5 SC; +INSU100I40 INJ; +INSU100I40 SQ; +METR-265 PO; +RISATAB3 PO
== END ==
LOC: M SOG 09:13
PROVIDERS: ATTEND Physician Assistant
DX: L03.012 Cellulitis of left finger (principal); M86.642 Other chronic osteomyelitis, left hand; M79.89 Other specified soft tissue disorders

== ENCOUNTER 2024-03-08 09:15 | Day surgery (SDC) | payer OTHER ==
[~2024-03-08] VITALS: Ht 170.2 cm; Wt 71.6 kg
[2024-03-08] MEDS ORDERED: GLUCOSE 4 GM CHEW PO PRN (09:20)
[2024-03-08] MEDS ORDERED: LR 1,000 ML IV SCH (09:20)
[2024-03-08] MEDS ORDERED: DEXTROSE 50% 50ML SYRINGE IV PRN (09:20)
[2024-03-08] MEDS ORDERED: GLUCAGON INJ 1MG VIAL SC PRN (09:20)
[2024-03-08] MEDS: INSULIN LISPRO (NovoLOG) PER UNIT IV ONE (10:30)
[2024-03-08] MEDS ORDERED: MIDAZOLAM INJ 2MG/2ML VIAL As Ordered ONE (10:34)
[2024-03-08] MEDS ORDERED: LIDOCAINE 2% 100MG/5ML SDV (FOR ANES.) As Ordered ONE (10:34)
[2024-03-08] MEDS ORDERED: fentaNYL 100 MCG/2 ML INJECTION As Ordered ONE (10:34)
[2024-03-08] MEDS ORDERED: propofoL 200 MG/20 ML VIAL As Ordered ONE (10:34)
[2024-03-08] MEDS ORDERED: ONDANSETRON 4MG 2ML VIAL As Ordered ONE (10:34)
[2024-03-08] MEDS ORDERED: METOCLOPRAMIDE INJ 10MG/2ML VIAL As Ordered ONE (10:34)
[2024-03-08] MEDS ORDERED: ACETAMINOPHEN 1000MG 100ML IV BAG As Ordered ONE (10:34)
[2024-03-08] MEDS: INSULIN LISPRO (NovoLOG) PER UNIT SC PRN (11:00)
[2024-03-08] MEDS: cefTRIAXone SOD 1 GM in D5W MINI-BAG PLUS 50 ML IV ONE (11:00)
[2024-03-08] MEDS: INSULIN LISPRO (NovoLOG) PER UNIT As Ordered ONE (11:05)
[2024-03-08] MEDS ORDERED: GLYCOPYRROLATE INJ 0.2 MG/ML 2 ML VIAL As Ordered ONE (11:51)
[2024-03-08] MEDS ORDERED: ePHEDrine SULFATE 25 MG/5 ML(5MG/ML) SYRINGE As Ordered ONE (11:56)
[2024-03-08] MEDS: BACITRACIN OINTMENT 30GM TUBE As Ordered ONE (12:08)
[2024-03-08 12:50] VITALS: BP 171/90; TEMP 97.5; O2SAT 99
== END 2024-03-08 13:16 | disposition home or self-care (01) ==
LOC: M SDC 09:15
PROVIDERS: ATTEND Orthopaedic Surgery Hand Surgery
DX: M86.142 Other acute osteomyelitis, left hand (principal); L03.012 Cellulitis of left finger; I10 Essential (primary) hypertension; E11.9 Type 2 diabetes mellitus without complications; F17.210 Nicotine dependence, cigarettes, uncomplicated; Z79.4 Long term (current) use of insulin; Z79.899 Other long term (current) drug therapy
CPT/HCPCS: 26951; 76000; 87070; 87076; 87077; 87186; 87205; J0131; J0665; J0696; J2250; J2405; J2765; J3010

== ENCOUNTER → 2024-03-14 | Outpatient (CLI) | payer OTHER ==
[2024-03-14 14:31] LABS: BASO # 0.1 10^3/uL (0.0-0.2); EOS # 0.1 10^3/uL (0.0-0.5); EOS % 1.1 % (0.0-3.0); HEMATOCRIT 28.2 % (42.0-52.0); HEMOGLOBIN 9.6 g/dl (13.5-17.5); LYMPH # 1.5 10^3/uL (1.5-5.0); LYMPH % 13.9 % (24.0-44.0); MEAN CORPUSCULAR HEMOGLOBIN 31.9 pg (27.0-33.0); MEAN CORPUSCULAR VOLUME 93.7 fl (80.0-96.0); MONO # 0.9 10^3/uL (0.0-0.8); MONO % 7.9 % (2.0-8.0); NEUTROPHILS # 8.3 10^3/uL (1.5-8.5); NEUTROPHILS % 75.7 % (36.0-66.0); PLATELET COUNT, AUTOMATED 168 10^3/uL (150-450); RED BLOOD COUNT 3.01 10^6/uL (4.30-6.10)
[2024-03-14 15:06] LABS: ERYTHROCYTE SEDIMENTATION RATE 109 mm/hr (0-15)
== END ==
LOC: M PLALAB 11:10
PROVIDERS: ATTEND Internal Medicine Infectious Disease
DX: M86.142 Other acute osteomyelitis, left hand (principal)

== ENCOUNTER → 2024-03-16 | Outpatient (CLI) | payer OTHER | LOC: M SOG 07:50 | PROVIDERS: ATTEND Physician Assistant | DX: L03.012 Cellulitis of left finger (principal); M86.642 Other chronic osteomyelitis, left hand ==

== ENCOUNTER → 2024-05-24 | Outpatient (REF) | payer OTHER ==
[2024-05-24 17:53] LABS: HEMATOCRIT 30.5 % (42.0-52.0); HEMOGLOBIN 10.8 g/dl (13.5-17.5); MEAN CORPUSCULAR HEMOGLOBIN 32.3 pg (27.0-33.0); MEAN CORPUSCULAR HGB CONC 35.4 g/dl (32.0-36.5); MEAN CORPUSCULAR VOLUME 91.3 fl (80.0-96.0); PLATELET COUNT, AUTOMATED 170 10^3/uL (150-450); RED BLOOD COUNT 3.34 10^6/uL (4.30-6.10); WHITE BLOOD COUNT 6.5 10^3/uL (4.0-10.0)
[2024-05-24 17:54] LABS: C REACTIVE PROTEIN QUANTITATIV < 0.40 MG/DL (<1.0)
[2024-05-24 18:16] LABS: ALBUMIN 3.3 G/DL (3.2-5.2); ALKALINE PHOSPHATASE 234 U/L (46-116); ALT/SGPT 70 U/L (7.0-40); AST/SGOT 54 U/L (<34); BILIRUBIN,TOTAL 0.3 MG/DL (0.3-1.2); BLOOD UREA NITROGEN 41 MG/DL (9-23); CALCIUM LEVEL 8.7 MG/DL (8.5-10.1); CARBON DIOXIDE LEVEL 24 MMOL/L (20-31); CHLORIDE LEVEL 94 MMOL/L (98-107); CREATININE FOR GFR 1.77 MG/DL (0.70-1.30); GLOMERULAR FILTRATION RATE 45.4 (>60); GLUCOSE, FASTING 676 MG/DL (60-100); POTASSIUM SERUM 4.2 MMOL/L (3.5-5.1); SODIUM LEVEL 126 MMOL/L (136-145); TOTAL PROTEIN 6.7 G/DL (5.7-8.2)
[2024-05-24 18:36] LABS: ERYTHROCYTE SEDIMENTATION RATE 49 mm/hr (0-15)
== END ==
LOC: M LABDRAWC 16:40
PROVIDERS: ATTEND Physician Assistant
DX: K59.1 Functional diarrhea (principal); R15.9 Full incontinence of feces; F10.10 Alcohol abuse, uncomplicated

== ENCOUNTER → 2024-11-30 | Outpatient (REF) | payer OTHER ==
[2024-11-30 14:55] LABS: ALBUMIN 2.5 G/DL (3.2-5.2); BILIRUBIN,TOTAL 0.3 MG/DL (0.3-1.2); CALCIUM LEVEL 8.3 MG/DL (8.5-10.1); CREATININE FOR GFR 1.52 MG/DL (0.70-1.30); GLOMERULAR FILTRATION RATE 54.1 (>60); POTASSIUM SERUM 3.7 MMOL/L (3.5-5.1); TOTAL PROTEIN 6.8 G/DL (5.7-8.2)
[2024-11-30 15:16] LABS: HEMOGLOBIN A1c 9.8 % (4.0-6.0)
== END ==
LOC: M SFHCCLAY 08:37
PROVIDERS: ATTEND Family Medicine
DX: E11.9 Type 2 diabetes mellitus without complications (principal)

== ENCOUNTER → 2025-01-03 | Outpatient (REF) | payer OTHER ==
[2025-01-03 13:15] LABS: ALBUMIN 2.7 G/DL (3.2-5.2); BILIRUBIN,TOTAL 0.2 MG/DL (0.3-1.2); CALCIUM LEVEL 8.6 MG/DL (8.5-10.1); CREATININE FOR GFR 1.75 MG/DL (0.70-1.30); POTASSIUM SERUM 5.1 MMOL/L (3.5-5.1); TOTAL PROTEIN 6.9 G/DL (5.7-8.2)
== END ==
LOC: M SFHCCLAY 07:59
PROVIDERS: ATTEND Family Medicine
DX: E11.9 Type 2 diabetes mellitus without complications (principal)

== ENCOUNTER → 2025-02-06 | Outpatient (REF) | payer OTHER | LOC: M LAB REF 12:14 | PROVIDERS: ATTEND Internal Medicine Gastroenterology | DX: K59.1 Functional diarrhea (principal); F10.10 Alcohol abuse, uncomplicated; R74.8 Abnormal levels of other serum enzymes; R15.9 Full incontinence of feces; A04.71 Enterocolitis due to Clostridium difficile, recurrent ==

== ENCOUNTER → 2025-05-08 | Outpatient (REF) | payer OTHER ==
[2025-05-08 17:45] LABS: ALT/SGPT 31.0 U/L (7.0-40); AST/SGOT 30.0 U/L (<34); CALCIUM LEVEL 8.3 MG/DL (8.5-10.1); CARBON DIOXIDE LEVEL 19.0 MMOL/L (20-31); CHLORIDE LEVEL 108.0 MMOL/L (98-107); CREATININE FOR GFR 2.16 MG/DL (0.70-1.30); GLOMERULAR FILTRATION RATE 38.3 (>60); POTASSIUM SERUM 5.6 MMOL/L (3.5-5.1); SODIUM LEVEL 134.0 MMOL/L (136-145)
== END ==
LOC: M SFHCCLAY 12:00
PROVIDERS: ATTEND Family Medicine
DX: R60.0 Localized edema (principal); N18.31 Chronic kidney disease, stage 3a

== ENCOUNTER → 2025-05-11 | Outpatient (REF) | payer OTHER ==
[2025-05-11 13:22] LABS: BASO # 0.1 10^3/uL (0.0-0.2); BASO % 1.4 % (0.0-1.0); EOS # 0.1 10^3/uL (0.0-0.5); EOS % 1.5 % (0.0-3.0); LYMPH # 1.1 10^3/uL (1.5-5.0); LYMPH % 17.0 % (24.0-44.0); MONO # 0.6 10^3/uL (0.0-0.8); MONO % 8.8 % (2.0-8.0); NEUTROPHILS # 4.6 10^3/uL (1.5-8.5); NEUTROPHILS % 70.8 % (36.0-66.0); PLATELET COUNT, AUTOMATED 203 10^3/uL (150-450)
[2025-05-11 14:02] LABS: ALT/SGPT 27.0 U/L (7.0-40); AST/SGOT 27.0 U/L (<34); CALCIUM LEVEL 8.5 MG/DL (8.5-10.1); CARBON DIOXIDE LEVEL 20.0 MMOL/L (20-31); CHLORIDE LEVEL 110.0 MMOL/L (98-107); CREATININE FOR GFR 2.08 MG/DL (0.70-1.30); GLOMERULAR FILTRATION RATE 40.0 (>60); POTASSIUM SERUM 5.3 MMOL/L (3.5-5.1); SODIUM LEVEL 140.0 MMOL/L (136-145)
== END ==
LOC: M SFHCCLAY 07:51
PROVIDERS: ATTEND Physician Assistant
DX: R60.0 Localized edema (principal)

== ENCOUNTER → 2025-05-24 | Outpatient (REF) | payer OTHER ==
[2025-05-24 17:41] LABS: BASO # 0.1 10^3/uL (0.0-0.2); BASO % 1.5 % (0.0-1.0); EOS # 0.1 10^3/uL (0.0-0.5); EOS % 1.3 % (0.0-3.0); LYMPH # 1.4 10^3/uL (1.5-5.0); LYMPH % 18.4 % (24.0-44.0); MONO # 0.5 10^3/uL (0.0-0.8); MONO % 7.1 % (2.0-8.0); NEUTROPHILS # 5.3 10^3/uL (1.5-8.5); NEUTROPHILS % 71.6 % (36.0-66.0); PLATELET COUNT, AUTOMATED 176 10^3/uL (150-450)
[2025-05-24 17:50] LABS: ALT/SGPT 61.0 U/L (7.0-40); AST/SGOT 54.0 U/L (<34); CALCIUM LEVEL 8.0 MG/DL (8.5-10.1); CARBON DIOXIDE LEVEL 21.0 MMOL/L (20-31); CHLORIDE LEVEL 107.0 MMOL/L (98-107); CREATININE FOR GFR 2.44 MG/DL (0.70-1.30); GLOMERULAR FILTRATION RATE 33.0 (>60); IRON (FE) 37.0 UG/DL (65-175); PERCENT SATURATION 16.0 % (19.7-50.0); POTASSIUM SERUM 5.2 MMOL/L (3.5-5.1); SODIUM LEVEL 137.0 MMOL/L (136-145)
[2025-05-24 17:52] LABS: VITAMIN B12 LEVEL 326.0 PG/ML (211-911)
== END ==
LOC: M SFHCCLAY 14:11
PROVIDERS: ATTEND Physician Assistant
DX: D64.9 Anemia, unspecified (principal)

== ENCOUNTER → 2025-06-19 | Outpatient (REF) | payer OTHER ==
[2025-06-19 17:43] LABS: IRON (FE) 35.0 UG/DL (65-175); PERCENT SATURATION 15.4 % (19.7-50.0)
== END ==
LOC: M LAB REF 17:00
PROVIDERS: ATTEND Internal Medicine Nephrology
DX: D50.9 Iron deficiency anemia, unspecified (principal)